=== PATIENT | female | born 1955 | race Caucasian/White ===

== ENCOUNTER 2018-04-12 07:30 | Inpatient (IN) | payer OTHER ==
[~2018-04-12] VITALS: Ht 165.1 cm; Wt 80.7 kg
[~2018-04-12 07:30] MED LIST: ACETAMINOPHEN325 M1 ORAL; CIPRO500 MG PO; COUMADIN5 MG PO; ESTRADIOL PO; ESTRADIOL1 M1 PO; LEVOTHYROXINE125 MCG PO; LISINOPRIL10 MG PO; LOVENOX SUBQ; MOTRIN600 MG PO; PEPCID40 MG PO; PERCOCET 5-3251 EACH PO; VICODIN PO
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
[2018-10-02 12:05] VITALS: BP 107/69
[2018-10-02] MEDS ORDERED: Heparin 2000 units/Ns 1000ml INJ PRN (12:30)
[2018-10-02] MEDS ORDERED: Lidocaine 1% Plain 30 ml INJ PRN (12:30)
[2018-10-02 13:04] LABS: BASOPHILS % (AUTO) 0.9 % (0.0-2.0); EOSINOPHILS % (AUTO) 0.9 % (0.0-3.0); HEMOGLOBIN 14.5 G/DL (12.0-16.0); LYMPHOCYTES % (AUTO) 10.3 % (20.0-45.0); MEAN CORPUSCULAR VOLUME 97 FL (80-99); MONOCYTES % (AUTO) 9.5 % (1.0-10.0); NEUTROPHILS % (AUTO) 78.4 % (45.0-75.0); PLATELET COUNT 300 K/UL (150-450); RED BLOOD COUNT 4.45 M/UL (4.20-5.40); RED CELL DISTRIBUTION WIDTH 12.6 % (11.6-14.8); WHITE BLOOD COUNT 12.7 K/UL (4.8-10.8)
[2018-10-02 13:10] LABS: INR 0.9 (0.9-1.1)
[2018-10-02] MEDS: Neomycin Sulfate 500mg Tab ORAL SCH ×3 (13:18→20:22)
[2018-10-02 13:28] LABS: ANION GAP 11 mmol/L (5-15); BLOOD UREA NITROGEN 28 mg/dL (7-18); CALCIUM 9.6 MG/DL (8.5-10.1); CARBON DIOXIDE 28 MMOL/L (21-32); CHLORIDE 98 MMOL/L (98-107); POTASSIUM 3.5 MMOL/L (3.5-5.1); SODIUM 137 MMOL/L (136-145)
[2018-10-02 13:44] LABS: ALANINE AMINOTRANSFERASE 51 U/L (12-78); ALBUMIN 4.1 G/DL (3.4-5.0); ALBUMIN/GLOBULIN RATIO 1.1 (1.0-2.7); ALKALINE PHOSPHATASE 132 U/L (46-116); ASPARTATE AMINO TRANSFERASE 28 U/L (15-37); BILIRUBIN,TOTAL 0.3 MG/DL (0.2-1.0); FERRITIN 782 NG/ML (8-388)
[2018-10-02 13:54] LABS: APPEARANCE,URINE SLIGHTLY CLOUDY; BILIRUBIN, URINE NEGATIVE (NEGATIVE); COLOR,URINE PALE YELLOW; GLUCOSE, URINE (UA) NEGATIVE (NEGATIVE); KETONES,URINE NEGATIVE (NEGATIVE); LEUKOCYTE ESTERASE ,URINE NEGATIVE (NEGATIVE); NITRITE,URINE NEGATIVE (NEGATIVE); PH,URINE 5 (4.5-8.0); PROTEIN,URINE 1+ (NEGATIVE); UROBILINOGEN,URINE NORMAL MG/DL (0.0-1.0)
[2018-10-02 14:12] LABS: % IRON SATURATION 17 % (15-50); IRON 62 ug/dL (50-175); TOTAL IRON BINDING CAPACITY 372 ug/dL (250-450)
[2018-10-02 16:00] VITALS: BP 114/68
--- NOTE | 2018-10-02 16:01 | Diagnostic Imaging Report ---
Indication: Dyspnea Comparison: 01/23/2013 A single view chest radiograph was obtained. Findings: The lungs are clear. There is minimal left basal atelectasis. PICC line is present. The tip is at the junction of the right atrium and SVC. Heart size is within normal limits. Bones are osteopenic. IMPRESSION: Minimal left basal atelectasis.
--- NOTE | 2018-10-02 16:08 | Diagnostic Imaging Report ---
Indication: terminal manager venous access Findings: After the indications, procedure, risks, complications, and alternatives of the procedure were explained, written informed consent was obtained. The left upper extremity was prepped with alcohol. All elements of maximal sterile barrier technique were followed including usage of a cap, mask, sterile gown, sterile gloves, hand hygiene and a large sterile sheet. Sonographic evaluation of the upper extremity was performed demonstrating a patent and compressible basilic vein. Access was obtained under real-time ultrasound guidance (with utilization of sterile gel and sterile probe cover) and digital image was saved and archived. An .018 wire was introduced. Needle exchanged for a 5 Greek peel-away sheath. Measurements were obtained. A 5 Greek dual-lumen Power PICC line catheter was cut to 45 cm and introduced over the wire. Peel-away sheath and wire were removed.Catheter was secured to the skin using 2-0 Prolene suture. Both ports aspirate and flush easily. Fluoroscopic images show distal tip in the superior vena cava. Total fluoroscopic time 26.6 seconds. Impression: Successful placement of an upper extremity PICC line catheter
[2018-10-02] MEDS: D5 1/2NS w/KCl 40meq 1000ml 1,000 ML IV SCH (16:39)
--- NOTE | 2018-10-02 16:57 | General Progress Note ---
Progress Note Progress Note H&P dictated. Full discussion with patient regarding revision of Kock Pouch, resection with creation of Breanna ileostomy, preservation of Kock pouch but rendering it incontinent and transforming it into a Breanna ileostomy. Labs satisfactory except Iron 62 (50-175). Hgb 14.5 She gets recurrent atrial fibrillation with serum iron less than 100 - will start Venofer tonight. WBC 12,700 - may be due to steroid therapy. Will also do needle liver biopsy for history of persistently elevated enzymes Will continue pre-admission Metoprolol, Lisinopril, thyroid and estradiol Will give solucortef IV and Protonix IV Kian Dominguez MD Oct 02, 2018 16:57
[2018-10-02] MEDS ORDERED: HYDROcodone/Acetamin 10/325 tab ORAL PRN (17:00)
--- NOTE | 2018-10-02 17:15 | Anethesia Preoperative Eval ---
Anesthesia Pre-op PMH/ROS General Date of Evaluation: Oct 02, 2018 Time of Evaluation: 17:08 Anesthesiologist: Yesenia ASA Score: ASA 3 Mallampati Score Class I : Soft palate, uvula, fauces, pillars visible Class II: Soft palate, uvula, fauces visible Class III: Soft palate, base of uvula visible Class IV: Only hard plate visible Mallampati Classification: Class II Surgeon: Angelica Diagnosis: Malfunctioning continent pouch recurrent abdominal hernia Surgical Procedure: Revision of continent pouch abd. wall reconstruction Anesthesia History: none Family History: no anesthesia problems Allergies: Coded Allergies: BENZALKONIUM CHLORIDE (Verified Allergy, Severe, 04/27/16) SERUM SICKNESS- IMMUNE COMPLEX Uncoded Allergies: INJE (Allergy, Severe, 04/27/16) ANGIOEDEMA VICRYL SUTURE (Allergy, Mild, 02/06/12) Medications: see eMAR Patient NPO?: Yes Past Medical History Cardiovascular: Reports: arrhythmia - intermittent A fib; Denies: HTN, CAD, CT, valve dz, other Pulmonary: Denies: asthma, COPD, CUAUHTEMOC, other Gastrointestinal/Genitourinary: Reports: GERD - mild, other - s/p total colectomy; Denies: CRI, ESRD Neurologic/Psychiatric: Reports: depression/anxiety; Denies: dementia, CVA, TIA, other Endocrine: Reports: steroids - small dose at that moment; Denies: DM, hypothyroidism, other HEENT: Denies: cataract (L), cataract (R), glaucoma, RUBY (L), RUBY (R), other Hematology/Immune: Reports: anemia - mild with iron deficiency; Denies: DVT, bleeding disorder, other Musculoskeletal/Integumentary: Denies: OA, RA, DJD, DDD, edema, other Other: other - overweight PMH Narrative: as above PSxH Narrative: See surgeon, H&P for full list of surgeries Anesthesia Pre-op Phys. Exam Physician Exam Last Vital Signs Date Time Temp Pulse Resp B/P (MAP) Pulse Ox O2 Delivery O2 Flow Rate FiO2 10/02/18 12:05 Room Air Constitutional: NAD Neurologic: CN 2-12 intact Cardiovascular: RRR, no M/R/G Respiratory: CTA Gastrointestinal: other - ventral hernia Airway Exam Mallampati Score: Class II MO: full Neck: flexible ROM: limited Teeth: intact Dentures: no upper, no lower Anesthesia Pre-op A/P Labs Hematology Test 10/02/18 12:30 White Blood Count 12.7 K/UL (4.8-10.8) H Red Blood Count 4.45 M/UL (4.20-5.40) Hemoglobin 14.5 G/DL (12.0-16.0) Hematocrit 43.0 % (37.0-47.0) Mean Corpuscular Volume 97 FL (80-99) Mean Corpuscular Hemoglobin 32.6 PG (27.0-31.0) H Mean Corpuscular Hemoglobin Concent 33.7 G/DL (32.0-36.0) Red Cell Distribution Width 12.6 % (11.6-14.8) Platelet Count 300 K/UL (150-450) Mean Platelet Volume 7.7 FL (6.5-10.1) Neutrophils (%) (Auto) 78.4 % (45.0-75.0) H Lymphocytes (%) (Auto) 10.3 % (20.0-45.0) L Monocytes (%) (Auto) 9.5 % (1.0-10.0) Eosinophils (%) (Auto) 0.9 % (0.0-3.0) Basophils (%) (Auto) 0.9 % (0.0-2.0) Coagulation Test 10/02/18 12:30 Prothrombin Time 9.9 SEC (9.30-11.50) Prothromb Time International Ratio 0.9 (0.9-1.1) Activated Partial Thromboplast Time 25 SEC (23-33) Chemistry Test 10/02/18 12:30 Sodium Level 137 MMOL/L (136-145) Potassium Level 3.5 MMOL/L (3.5-5.1) Chloride Level 98 MMOL/L (98-107) Carbon Dioxide Level 28 MMOL/L (21-32) Anion Gap 11 mmol/L (5-15) Blood Urea Nitrogen 28 mg/dL (7-18) H Creatinine 1.0 MG/DL (0.55-1.30) Estimat Glomerular Filtration Rate 55.8 mL/min (>60) Glucose Level 105 MG/DL (74-106) Calcium Level 9.6 MG/DL (8.5-10.1) Iron Level 62 ug/dL (50-175) Total Iron Binding Capacity 372 ug/dL (250-450) Percent Iron Saturation 17 % (15-50) Unsaturated Iron Binding 310 ug/dL (112-346) Ferritin 782 NG/ML (8-388) H Total Bilirubin 0.3 MG/DL (0.2-1.0) Aspartate Amino Transf (AST/SGOT) 28 U/L (15-37) Alanine Aminotransferase (ALT/SGPT) 51 U/L (12-78) Alkaline Phosphatase 132 U/L (46-116) H Total Protein 7.7 G/DL (6.4-8.2) Albumin 4.1 G/DL (3.4-5.0) Globulin 3.6 g/dL Albumin/Globulin Ratio 1.1 (1.0-2.7) Vitamin B12 Level 818 PG/ML (193-986) Folate 73.4 NG/ML (8.6-58.9) H Studies Pre-op Studies: EKG - NSR Risk Assessment & Plan Assessment: ASA 3 Plan: GA with ETT. Patient requested Duramorph intrathecal injection for postoperative pain control Status Change Before Surgery: No Pre-Antibiotics Drug: as scheduled Brent Patterson MD Oct 02, 2018 17:15
[2018-10-02] MEDS ORDERED: D5 1/2NS w/KCl 20mEq 1,000 ML IV SCH (18:00)
[2018-10-02] MEDS ORDERED: LEVOTHYROXINE75 MCG ORAL (19:45)
[2018-10-02] MEDS ORDERED: ESTRACE1 MG ORAL (19:45)
[2018-10-02] MEDS ORDERED: PROPAFENONE HC150 MG PO (19:45)
[2018-10-02] MEDS ORDERED: LISINOPRIL5 MG ORAL (19:45)
[2018-10-02] MEDS ORDERED: METOPROLOL TART50 M1 ORAL (19:45)
[2018-10-02 20:00] VITALS: BP 101/63
[2018-10-02] MEDS: Dyna-Hex 2% Top Sol 2oz TOPIC SCH (20:24)
[2018-10-02] MEDS: Iron Sucrose 100 MG in NS 55 ML IV SCH (20:24)
[2018-10-02] MEDS: Pantoprazole Inj IVP SCH (20:24)
[2018-10-02] MEDS ORDERED: Metoprolol Tartrate 50mg tab ORAL SCH (21:00)
[2018-10-03] VITALS (15 sets, daily range): BP systolic 80–122; BP diastolic 45–67
[2018-10-03] MEDS ORDERED: Clindamycin 300mg/ml vial inj IV SCH
[2018-10-03] MEDS: Ampicillin/Sulbactam Sod 3 GM in NS 110 ML IVPB SCH ×5 (00:19→23:01)
[2018-10-03] MEDS: [UNRECOGNIZED DRUG - OTHER] IV SCH ×5 (00:19→23:00)
[2018-10-03] MEDS: CLINDAMYCIN IV SCH ×5 (00:19→23:00)
[2018-10-03] MEDS: D5 1/2NS w/KCl 40meq 1000ml 1,000 ML IV SCH ×2 (03:28→12:00)
[2018-10-03 06:44] LABS: ANION GAP 7 mmol/L (5-15); BLOOD UREA NITROGEN 14 mg/dL (7-18); CALCIUM 8.4 MG/DL (8.5-10.1); CARBON DIOXIDE 26 MMOL/L (21-32); CHLORIDE 106 MMOL/L (98-107); CREATININE 0.7 MG/DL (0.55-1.30); POTASSIUM 3.2 MMOL/L (3.5-5.1); SODIUM 139 MMOL/L (136-145)
[2018-10-03 07:51] LABS: BASOPHILS % (AUTO) 1.2 % (0.0-2.0); EOSINOPHILS % (AUTO) 2.8 % (0.0-3.0); HEMATOCRIT 38.6 % (37.0-47.0); HEMOGLOBIN 12.7 G/DL (12.0-16.0); LYMPHOCYTES % (AUTO) 16.7 % (20.0-45.0); MEAN CORPUSCULAR VOLUME 95 FL (80-99); MONOCYTES % (AUTO) 13.1 % (1.0-10.0); NEUTROPHILS % (AUTO) 66.3 % (45.0-75.0); PLATELET COUNT 201 K/UL (150-450); RED BLOOD COUNT 4.04 M/UL (4.20-5.40); RED CELL DISTRIBUTION WIDTH 12.3 % (11.6-14.8); WHITE BLOOD COUNT 6.6 K/UL (4.8-10.8)
[2018-10-03] MEDS ORDERED: Hydrocortisone 100mg Inj IV SCH (08:00)
[2018-10-03] MEDS ORDERED: Heparin 5000 units/ml inj SUBQ SCH (08:00)
[2018-10-03] MEDS ORDERED: D5W IVPB ONE (08:45)
[2018-10-03] MEDS ORDERED: POTASSIUM CHLORIDE IVPB ONE (08:45)
[2018-10-03] MEDS ORDERED: Lisinopril 10mg tab ORAL SCH (09:00)
[2018-10-03] MEDS ORDERED: Metoprolol Tartrate 50mg tab ORAL SCH (09:00)
[2018-10-03] MEDS ORDERED: NS Irrig 1000ml ONE ×2 (09:00→17:03)
[2018-10-03] MEDS ORDERED: Sterile Water Irrig 1000ml IRRIG ONE (09:00)
[2018-10-03] MEDS ORDERED: Bacitracin 50000 Units Vial ONE ×2 (09:10→14:33)
[2018-10-03] MEDS ORDERED: NeoSporin Gu Irrig 1ml Amp IRRIG ONE ×2 (09:10→14:33)
[2018-10-03] MEDS: Pantoprazole Inj IVP SCH (09:10)
[2018-10-03] MEDS ORDERED: Morphine Sulfate PF 10 ML ONE (09:21)
[2018-10-03] MEDS ORDERED: LR 1000ml 1,000 ML IVLG SCH (09:23)
[2018-10-03] MEDS ORDERED: Sodium Chloride 10ml vial INJ ONE (09:26)
[2018-10-03] MEDS ORDERED: Lidocaine 1% MPF 10mg/ml 5ml ONE (09:26)
[2018-10-03] MEDS ORDERED: Dexamethasone 4mg/ml vial ONE (09:26)
[2018-10-03] MEDS ORDERED: Lidocaine 1% Plain 30 ml INJ ONE (09:28)
[2018-10-03] MEDS ORDERED: Meperidine 50mg/ml Inj(FOR RIGORS ONLY) IVP PRN (09:30)
[2018-10-03] MEDS ORDERED: fentaNYL 100 mcg/2 mL IV PRN (09:30)
[2018-10-03] MEDS ORDERED: DiphenhydrAMINE 50mg/ml Inj IVP PRN (09:30)
[2018-10-03] MEDS ORDERED: Norco 5mg/325mg tab ORAL PRN (09:30)
[2018-10-03] MEDS ORDERED: Ketorolac 30mg Inj IV PRN ×2 (09:30)
[2018-10-03] MEDS ORDERED: LORazepam Inj 2mg/ml 1ml IV PRN (09:30)
[2018-10-03] MEDS ORDERED: oxyCODONE HCL/Acetaminophen 5/325mg ORAL PRN (09:30)
[2018-10-03] MEDS ORDERED: Metoclopramide 10mg/2ml Inj IVP PRN (09:30)
[2018-10-03] MEDS ORDERED: Propofol 1,000mg/ 100ml btl IV ONE (09:30)
[2018-10-03] MEDS ORDERED: Hydromorphone 0.5mg/0.5ml inj IVP PRN (09:30)
[2018-10-03] MEDS ORDERED: Midazolam 2mg/2ml Inj IVP PRN (09:30)
[2018-10-03] MEDS ORDERED: HYDROcodone/Acetamin 7.5/325 tab ORAL PRN (09:30)
[2018-10-03] MEDS ORDERED: Atropine Sulfate 0.4mg/ml inj IVP PRN (09:30)
[2018-10-03] MEDS ORDERED: Acetaminophen (Non formulary) 100 ML IV ONE (09:30)
[2018-10-03] MEDS ORDERED: Zemuron 50mg/5ml Inj IV ONE (09:41)
--- NOTE | 2018-10-03 09:41 | Pre-Procedure Note/Attestation ---
Pre-Procedure Note/Attestation Complete Prior to Procedure Planned Procedure: not applicable Procedure Narrative: revision of Kock Pouch, possible resection with Breanna ileostomy; repair multiply recurrent ventral incisional and parastomal herniae Indications for Procedure Pre-Operative Diagnosis: Malfunctioning Kock Pouch and recurrent incisional and parastomal hernia Attestation I attest that I discussed the nature of the procedure; its benefits; risks and complications; and alternatives (and the risks and benefits of such alternatives ), prior to the procedure, with the patient (or the patient's legal community representative). I attest that, if there was a reasonable possibility of needing a blood transfusion, the patient (or the patient's legal community representative) was given the [place] Department [employer] standardized written summary, pursuant to the [place] Blood Safety Act ([place] Health and Safety Code # 1645, as amended). I attest that I re-evaluated the patient just prior to the surgery and that there has been no change in the patient's H&P, except as documented below: none Kian Dominguez MD Oct 03, 2018 09:41
[2018-10-03] MEDS ORDERED: Bupivacaine 0.5% Inj 30 ml vial INJ ONE (09:56)
[2018-10-03] MEDS ORDERED: cloNIDine 1000mcg/10ml inj ONE (09:56)
--- NOTE | 2018-10-03 10:47 | Immediate Post-Op Evaluation ---
Immediate Post-Op Evalulation Immediate Post-Op Evalulation Procedure: Revise Kock Pouch, Abd Wall Reconstruction Date of Evaluation: Oct 03, 2018 Time of Evaluation: 16:00 IV Fluids: 1000 LR Blood Products: 1000 Albumin Estimated Blood Loss: 150 Urinary Output: 600 Blood Pressure Systolic: 90 Blood Pressure Diastolic: 56 Pulse Rate: 106 Respiratory Rate: 16 O2 Sat by Pulse Oximetry: 99 Temperature (Fahrenheit): 98.7 Pain Score (1-10): 1 Nausea: No Vomiting: No Complications 0 Patient Status: awake, reacts, patent, extubated, none Hydration Status: adequate Drug: On Floor Given Within 1 Hr of Incision: Yes Jake Dawkins MD Oct 03, 2018 10:47
[2018-10-03] MEDS ORDERED: Ampicillin/Sulbactam Sod 3 GM in NS 110 ML IV SCH (12:00)
[2018-10-03] MEDS ORDERED: ePHEDrine 50mg/ml Inj ONE ×2 (12:37→12:55)
[2018-10-03] MEDS ORDERED: Phenylephrine 10mg/ml Vial ONE (13:32)
[2018-10-03] MEDS ORDERED: Lidocaine 1% 10mg/ml/Epi 0.005mg/ml 30ml vial INJ ONE (14:32)
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
[2018-10-03] MEDS ORDERED: Glycopyrrolate 0.2mg/ml 1ml Vial ONE (15:04)
[2018-10-03] MEDS ORDERED: Naloxone 0.4mg/ml Inj IV PRN (16:00)
--- NOTE | 2018-10-03 16:16 | Brief Operative Note ---
Immediate Post Operative Note Operative Note Pre-op Diagnosis: Malfunctioning Kock Pouch and recurrent incisional and parastomal hernia Procedure: resection of Kock Pouch and creation of Breanna ileostomy, abdominal wall reconstruction without mesh Post-op Diagnosis: same Post-op Diagnosis: same as pre-op Findings: consistent w/pre-op dx studies Surgeon: shalini Server Manager: jose raul Additional Surgeons: saadia Anesthesiologist: blanche Anesthesia: general Specimen: yes - Kock pouch, omentum, hernia sac Complications: none Condition: stable Fluids: see anesthesia record Estimated Blood Loss: volume - 150cc Drains: MINESH Implant(s) used?: No Kian Dominguez MD Oct 03, 2018 16:16
--- NOTE | 2018-10-03 16:18 | General Progress Note ---
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 Will utilize Fentanyl patch 25mcq q72 hours and intermittent low dose Toradol if needed Kian Dominguez MD Oct 03, 2018 16:18
[2018-10-03] MEDS ORDERED: D5 1/2NS w/KCl 40meq 1000ml 1,000 ML IV SCH (19:00)
[2018-10-03] MEDS: Iron Sucrose 100 MG in NS 55 ML IV SCH (20:44)
--- NOTE | 2018-10-03 20:45 | Operative Note - Dictated ---
DATE OF OPERATION: 10/03/2018 SURGEON: Kevin Bermudez M.D. ANESTHESIOLOGIST: Jake Dawkins M.D. PREOPERATIVE DIAGNOSIS: Abdominal wall hernia. POSTOPERATIVE DIAGNOSIS: Abdominal wall hernia. OPERATION: Abdominal wall reconstruction with advancement of abdominal wall fascia and musculature, elevating bilateral flaps. ANESTHESIA: General endotracheal anesthesia. OPERATIVE INDICATIONS: This is a 63-year-old female who is undergoing bowel surgery by Dr. Kian Dominguez and his portion of the surgery will be dictated by Dr. Dominguez. She has had a prior history of multiple ventral hernias with different types of mesh repair. She is to undergo pick down of her Kock pouch and is needed to mobilize the abdominal wall musculature for closure of the abdominal wall. OPERATIVE PROCEDURE: The portion of the intraabdominal surgery will be dictated by Dr. Dominguez. Upon entering the room, the patient is noted to have a midline incision with division of the rectus musculature in the midline. She was noted to have a very thin rectus musculature without defined semilunaris. Decision was made at this point to try and do component separation by first elevating the skin, subcutaneous flap off the anterior rectus fascia. This could be done more aggressively on the left side as she wishes to have an ileostomy, brought out through the right lower quadrant. Beginning with medial edge of the rectus muscle, the skin and subcutaneous fat was elevated in an avascular plane extending out laterally on the left side. It is very difficult to appreciate the semilunaris line in this patient as she has had very atrophic musculature as well as multiple reconstructions internally with mesh sutures. As the skin flap was elevated towards the lateral aspect from the costal margin to the anterior inferior iliac spine, it was felt that it was too thin to try to attempt a component separation as there would lead to a potential weakening of the lateral abdominal wall and if not a full-thickness defect and this would lead to problems with lateral hernia in the future. So, at this point, decision was made to mobilize as much of the rectus fascia on the right side bearing in mind not to violate the area where the stoma was to be brought out. Once this was done, there was actually very minimal to no tension on the rectus closure on the midline. This was then done with a number #1 PDS in a running fashion, beginning superiorly to the midpoint and inferiorly to the midpoint. Once this was closed, it was deemed to be acceptable without any need for onlay mesh, as she did have significant bowel spillage during the surgery and did not want a risk of mesh infection. At this point, the irrigation was performed of the pocket created below the flaps and then a 19-Serbian Rj drain was placed and brought out through the left lower quadrant and secured to the skin with a 2-0 nylon. The incision was then closed with 3-0 Monocryl in a subcutaneous tissue followed by leopoldo for the skin. Dr. Dominguez will of the ileostomy and will dictate this separately as well. There were no complications during my portion of the case. EBL was scant. The patient is stable. Kevin Bermudez M.D. DR: YUSEF JOB#: [id number] CC:
[2018-10-03] MEDS: Ketorolac 30mg Inj IM PRN (20:46)
[2018-10-03] MEDS: Dyna-Hex 2% Top Sol 2oz TOPIC SCH (20:46)
--- NOTE | 2018-10-03 21:30 | Operative Note - Dictated ---
DATE OF OPERATION: 10/03/2018 SURGEON: Kian Dominguez M.D. TRANSIT MIX OPERATOR SURGEON: Rodney Henriquez M.D. ADDITIONAL SURGEON: Kevin Bermudez M.D. ANESTHESIOLOGIST: Jake Dawkins M.D. TYPE OF ANESTHESIA: General endotracheal. PREOPERATIVE DIAGNOSES: 1. Malfunctioning Kock pouch continent ileostomy with recurrent difficulty intubating and incontinence and prolapse of the nipple valve 2. Multiple recurrent extensive ventral incisional and parastomal hernia involving the entire lower abdomen and central abdomen. 3. STATUS POST MULTIPLE ABDOMINAL OPERATIONS: 3.1. April 2000 followed by perineal trauma. She underwent laparotomy with colostomy and drainage of pelvic abscess and evacuation of retroperitoneal hematoma. 3.2. July 2001, proctocolectomy with creation of a Kock pouch and repair of left lower quadrant colostomy site hernia, cholecystectomy, total abdominal hysterectomy and bilateral salpingo-oophorectomy, and urethropexy. 3.3. 2001, repair of parastomal hernia. 3.4. 2002, relocation of Kock pouch to the left side of abdomen with creation of a new valve and repair of right-sided abdominal hernia. 3.5. 2004, repair of complex recurrent extensive ventral incisional and parastomal hernia with Parietex mesh and revision of Kock pouch stoma. 3.6. 2008, repair of recurrent Kock pouch parastomal hernia with Surgisis mesh and revision of Kock pouch stoma stricture. 3.7. August 2010, laparotomy with creation of new valve and stoma with relocation of the Kock pouch to the right side of the abdomen and repair of recurrent left lower quadrant abdominal wall hernia and temporary catheter gastrostomy. 3.8. January 2012, laparotomy with revision of Kock pouch including creation of new valve and stoma and repair of recurrent incisional hernia. 3.9. July 2012, laparotomy with creation of new valve and stoma with preservation of Kock pouch using a PROCEED mesh sling and repair of recurrent left lower quadrant incisional hernia. 3.10. January 2013, laparotomy with creation of new valve and stoma with Dual Mesh sling with estimated intestinal length of approximately 12 feet. POSTOPERATIVE DIAGNOSES: 1. Malfunctioning Kock pouch continent ileostomy with recurrent difficulty intubating and incontinence and prolapse of the nipple valve 2. Multiple recurrent extensive ventral incisional and parastomal hernia involving the entire lower abdomen and central abdomen. 3. STATUS POST MULTIPLE ABDOMINAL OPERATIONS: 3.1. April 2000 followed by perineal trauma. She underwent laparotomy with colostomy and drainage of pelvic abscess and evacuation of retroperitoneal hematoma. 3.2. July 2001, proctocolectomy with creation of a Kock pouch and repair of left lower quadrant colostomy site hernia, cholecystectomy, total abdominal hysterectomy and bilateral salpingo-oophorectomy, and urethropexy. 3.3. 2001, repair of parastomal hernia. 3.4. 2002, relocation of Kock pouch to the left side of abdomen with creation of a new valve and repair of right-sided abdominal hernia. 3.5. 2004, repair of complex recurrent extensive ventral incisional and parastomal hernia with Parietex mesh and revision of Kock pouch stoma. 3.6. 2008, repair of recurrent Kock pouch parastomal hernia with Surgisis mesh and revision of Kock pouch stoma stricture. 3.7. August 2010, laparotomy with creation of new valve and stoma with relocation of the Kock pouch to the right side of the abdomen and repair of recurrent left lower quadrant abdominal wall hernia and temporary catheter gastrostomy. 3.8. January 2012, laparotomy with revision of Kock pouch including creation of new valve and stoma and repair of recurrent incisional hernia. 3.9. July 2012, laparotomy with creation of new valve and stoma with preservation of Kock pouch using a PROCEED mesh sling and repair of recurrent left lower quadrant incisional hernia. 3.10. January 2013, laparotomy with creation of new valve and stoma with Dual Mesh sling with estimated intestinal length of approximately 12 feet. OPERATION PERFORMED: 1. Laparotomy with resection of failed Kock pouch and creation of Breanna ileostomy at the same right lower quadrant stoma. 2. Resection of part of the omentum and hernia sac. 3. Abdominal wall reconstruction performed together with Dr. Kevin Bermudez, Plastic and Reconstructive surgery with closure of the abdominal wall without mesh. 4. Estimated length of small bowel 13 to 14 feet. DESCRIPTION OF PROCEDURE: The patient was taken to the operating room and under general endotracheal anesthesia with sequential compression device stockings and Acosta catheter in place and having received preoperative intravenous antibiotics and subcutaneous heparin, the patient was prepped and draped in usual fashion. Initially, the stoma in the right lower quadrant was covered with Tegaderm. Previous midline incision was reopened from upper epigastrium to the pubis. There were diffuse adhesions, which were all taken down so that the entire stomach and then duodenum and the entire small bowel was mobilized. Part of the retained omentum was resected ligating vessels with #0 silk. In view of chronic elevated liver function enzymes, a core needle biopsy of the liver was performed with a Dawit-Cut needle with three passes achieving hemostasis readily with cautery. The stoma in the right lower quadrant was dismantled with a transversely oriented elliptical incision and brought through into the abdominal wall. A 28-Latvian Acosta was manipulated through the stoma into the pouch to facilitate dissection. The pouch was mobilized out of the deep pelvis protecting the bladder and both ureters. It was quite densely adherent to the bladder. Finally, the entire small bowel with the pouch was mobilized. It was clear that this Kock pouch could not be salvaged, and accordingly, the small bowel was divided flush with the pouch and the estimated length of small bowel was 13 to 14 feet. The pouch was resected, dividing the mesentery using a combination of 2-0 and 0 silk ties and the Thunderbeat electrocautery device. The small bowel was stapled across with a TREASURE 75 flush with the pouch. Hernia sac was stripped out of the abdominal wall in the central and lower abdomen. The parastomal hernia was dealt with by narrowing the abdominal wall hiatus medially with several interrupted #1 PDS sutures leaving a 2 fingerbreadth abdominal wall hiatus for the Breanna ileostomy. The stoma was located in a good position to utilize an external appliance. Throughout the procedure, frequent glove changes were performed and antibiotic soaked laps were used to protect the abdominal wall. The entire field of dissection including the liver, abdomen and pelvis was carefully inspected and hemostasis was secured. Dr. Bermudez helped mobilize a flap on both sides, but the abdominal wall thickness was approximately 0.5 cm to 1 centimeter. There was atrophy of the rectus muscles on both sides. Any attempt to perform a component separation would have risked full-thickness going through the abdominal wall musculature and a subsequent lateral hernia. With persistent mobilization, the fascia could be brought together in the midline without any significant tension. It was closed in sectors with #1 PDS continuous suture. First, the upper abdomen, then the very lower, and then the central. With a separate stab incision low in the left lower quadrant, a 19 mm Rj drain was placed under the subcutaneous tissues on the left side crossing to the right above the level of the ileostomy and the drain was sutured in place with 2-0 silk suture. Additional irrigation was utilized and the abdominal midline incision closed with multiple interrupted subcutaneous 3-0 Monocryl and the skin closed with leopoldo. Then the mesentery leading to the end of the ileostomy segment was trimmed ligating with 3-0 Chromic and then utilizing 3-0 Chromic in traditional fashion an everted Breanna ileostomy was created with a very good protrusion. The small bowel had been sutured to the peritoneum with interrupted 3-0 silk sutures before the abdomen had been closed. An ileostomy appliance was cut to fit and placed over the stoma followed by Telfa and 4x4 over the incision. An abdominal binder was placed with a hole cut over the area of the ileostomy. ESTIMATED BLOOD LOSS: 150 mL. DURATION OF SURGERY: Four and half hours. The patient tolerated the operation well and left the operating room in stable condition. Kian Dominguez M.D. DR: MUMTAZ JOB#: [id number] CC: GURU
[2018-10-04] VITALS (12 sets, daily range): BP systolic 73–110; BP diastolic 42–64
[2018-10-04] MEDS: D5 1/2NS w/KCl 40meq 1000ml 1,000 ML IV SCH ×2 (01:30→12:16)
[2018-10-04 05:47] LABS: BASOPHILS % (AUTO) 0.2 % (0.0-2.0); HEMOGLOBIN 8.7 G/DL (12.0-16.0); LYMPHOCYTES % (AUTO) 4.8 % (20.0-45.0); MEAN CORPUSCULAR VOLUME 96 FL (80-99); MONOCYTES % (AUTO) 10.1 % (1.0-10.0); NEUTROPHILS % (AUTO) 84.9 % (45.0-75.0); PLATELET COUNT 143 K/UL (150-450); RED BLOOD COUNT 2.71 M/UL (4.20-5.40); RED CELL DISTRIBUTION WIDTH 12.8 % (11.6-14.8); WHITE BLOOD COUNT 9.8 K/UL (4.8-10.8)
[2018-10-04] MEDS: Ampicillin/Sulbactam Sod 3 GM in NS 110 ML IVPB SCH ×3 (05:51→18:04)
[2018-10-04] MEDS: [UNRECOGNIZED DRUG - OTHER] IV SCH ×3 (05:52→18:06)
[2018-10-04] MEDS: CLINDAMYCIN IV SCH ×3 (05:52→18:06)
[2018-10-04 05:58] LABS: ANION GAP 9 mmol/L (5-15); BLOOD UREA NITROGEN 14 mg/dL (7-18); CALCIUM 7.5 MG/DL (8.5-10.1); CARBON DIOXIDE 22 MMOL/L (21-32); CHLORIDE 111 MMOL/L (98-107); CREATININE 1.1 MG/DL (0.55-1.30); POTASSIUM 3.5 MMOL/L (3.5-5.1); SODIUM 142 MMOL/L (136-145)
--- NOTE | 2018-10-04 08:41 | General Progress Note ---
Progress Note Progress Note Awake and alert, comfortable with Fentanyl 25mcg patch and one dose of Toradol 15mg IV overnight Had mild hypotension and mild tachycardia with low urine output overnight, improved this AM with additional IV fluids Abdomen soft, minimal distention, incision clean, stoma pink, binder in place with hole cut for ileostomy Urine 355cc/12 hours overnight WBC 9800 Hgb 8.7 (was 12.7 pre-op - likely dilutional with EBL only 150cc and not distended) Platelets down 143,000 K 3.5 BUN 14 Cr 1.1 Imp. Third spacing with transient hypotension Ileus Plan; NPO, continue Acosta Cardiology evaluation (Dr. Castellon called) f/u labs at 1300 and in AM bedrest with SCDs for now Kian Dominguez MD Oct 04, 2018 08:41
[2018-10-04] MEDS: NS w/KCl 40mEq 1,000 ML IV SCH ×2 (08:49→22:20)
[2018-10-04] MEDS: Hydrocortisone 100mg Inj IV SCH ×2 (08:49→21:10)
[2018-10-04] MEDS: Pantoprazole Inj IVP SCH (08:49)
[2018-10-04] MEDS: Ketorolac 30mg Inj IM PRN (08:52)
[2018-10-04] MEDS ORDERED: Lisinopril 10mg tab ORAL SCH (09:00)
[2018-10-04] MEDS ORDERED: Metoprolol Tartrate 50mg tab ORAL SCH (09:00)
--- NOTE | 2018-10-04 09:50 | 48 Hour Post Anesthesia Eval ---
Post Anesthesia Evaluation Procedure: Revise Kock Pouch, Abd Wall Reconstruction Date of Evaluation: Oct 04, 2018 Time of Evaluation: 09:49 Blood Pressure Systolic: 106 0: 72 Pulse Rate: 68 Respiratory Rate: 20 Temperature (Fahrenheit): 97.6 O2 Sat by Pulse Oximetry: 98 Airway: patent Nausea: No Vomiting: No Pain Intensity: 3 Hydration Status: adequate Cardiopulmonary Status: stable Mental Status/LOC: patient returned to baseline Follow-up Care/Observations: n/a Post-Anesthesia Complications: none Follow-up care needed: N/A Brent Patterson MD Oct 04, 2018 09:50
[2018-10-04 13:19] LABS: HEMOGLOBIN 8.5 G/DL (12.0-16.0); MEAN CORPUSCULAR VOLUME 97 FL (80-99); PLATELET COUNT 129 K/UL (150-450); RED BLOOD COUNT 2.69 M/UL (4.20-5.40)
[2018-10-04 13:28] LABS: ANION GAP 9 mmol/L (5-15); BLOOD UREA NITROGEN 13 mg/dL (7-18); CALCIUM 7.7 MG/DL (8.5-10.1); CARBON DIOXIDE 22 MMOL/L (21-32); CHLORIDE 113 MMOL/L (98-107); CREATININE 0.8 MG/DL (0.55-1.30); POTASSIUM 3.5 MMOL/L (3.5-5.1); SODIUM 144 MMOL/L (136-145)
[2018-10-04] MEDS ORDERED: NS 250 ML IVPB ONE (14:18)
--- NOTE | 2018-10-04 15:02 | Cardiology Report ---
APPROVED REPORT EKG Measurement Heart [id number] Normal sinus rhythm Normal ECG
--- NOTE | 2018-10-04 16:04 | Consultation ---
Consult Note Assessment/Plan Chart reviewed, Patient examined. Imp: Paroxysmal A. Fib- in NSR Hypotension Fibromyalgia Hypothyroidism S/P conversion of Kock pouch to ileostomy Plan IV fluids Start Metoprolol 25 mg BID Monitor BP, HR and U.O. Check labs in AM. Will follow Consult Dictated # [id number] Jace Castellon MD Oct 04, 2018 16:04
--- NOTE | 2018-10-04 16:40 | General Progress Note ---
Progress Note Progress Note Feeling better. T 100.6 now afebrile. BP up with additional fluid Hgb 8.5 (stable) Platelets 129,000 (will d/c toradol) K 3.5 BUN [address] Castellon's consultation Imp. Stable with ileus and atelectasis and third-spacing Plan: continue current regimen mobilize in AM when BP more normal Kian Dominguez MD Oct 04, 2018 16:40
[2018-10-04] MEDS ORDERED: oxyCODONE HCL/Acetaminophen 5/325mg ORAL PRN (16:45)
[2018-10-04] MEDS: LORazepam 1mg tab SL PRN (19:47)
[2018-10-04] MEDS: Dyna-Hex 2% Top Sol 2oz TOPIC SCH (20:00)
[2018-10-04] MEDS ORDERED: Ketorolac 30mg Inj IV SCH (20:40)
[2018-10-04] MEDS: Iron Sucrose 100 MG in NS 55 ML IV SCH (21:09)
[2018-10-04] MEDS: Metoprolol 25mg tab ORAL SCH ×2 (21:10→22:52)
--- NOTE | 2018-10-04 21:30 | General Progress Note ---
Progress Note Progress Note Having severe abdominal pain despite the Fentanyl 25mcg patch, a dose of Toradol 30mg IV (despite decreased platelet count), and percocet po. Abdomen is not distended, soft, incision clean, MINESH drain serosang, ileostomy RLQ is pink with effluent in bag VS with BP and P up due to pain; urine clear Imp. 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 At that time the Fentanyl transderm patch was very effective. Discussed with pharmacist Kian Dominguez MD Oct 04, 2018 21:30
--- NOTE | 2018-10-04 21:45 | Consultation ---
DATE OF CONSULTATION: 10/04/2018 CARDIOLOGY CONSULTATION CONSULTING PHYSICIAN: Jace Castellon M.D. ATTENDING PHYSICIAN: Kian Dominguez M.D. REASON FOR CONSULTATION: Hypotension and history of atrial fibrillation. 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 The patient has had malfunctioning pouch and was admitted for resection of the pouch and creation of an ileostomy. The patient underwent surgical procedure on 10/03/2018 and has had relative hypotension postoperatively. She has required IV fluids at 150 mL an hour with some improvement. The patient's history is significant for episodes of hypotension as well as paroxysmal atrial fibrillation, which she attributes to electrolyte imbalance. The patient has been treated with beta-blockers, metoprolol 50 mg b.i.d. as well as low-dose Zestril 10 mg daily. She also uses propafenone as needed with episodes of atrial fibrillation, which rather infrequent. The patient has been monitoring her rhythm at home and has remained in sinus rhythm. She was in sinus rhythm at the time of admission and throughout the surgery and has had no evidence of atrial fibrillation since admission. Because of her blood pressure variation and some episodes of hypotension, cardiac medications have been held. Cardiac consultation is requested by Dr. Dominguez for management of her cardiac status. PAST MEDICAL HISTORY: 1. Status post proctocolectomy. 2. History of Kock pouch with malfunction. 3. History of fibromyalgia. 4. Hypothyroidism. 5. History of atrial fibrillation as noted above. 6. Status post multiple abdominal surgeries following perineal trauma. 7. Spinal arthritis. 8. History of elevated HDL. MEDICATIONS: At the time of admission, the patient was on Zestril 10 mg daily, metoprolol 50 mg b.i.d., prednisone 5 mg daily, Tylenol, and Advil p.r.n. Currently, the patient is on fentanyl patch for pain control as well as hydrocortisone 100 mg daily, Mylanta p.r.n., lorazepam p.r.n., Zofran p.r.n., Synthroid 100 mcg daily, clindamycin IV, Zosyn IV, iron IV, and propafenone p.r.n. REVIEW OF SYSTEMS: Essentially as noted above. The patient has had episodes of dizziness, but currently denies dizziness. No shortness of breath or chest pain. She lives in active lifestyle and has no cardiac limitations. She denies history of coronary artery disease. Her last stress test was about three years ago, which reportedly was negative. PHYSICAL EXAMINATION: VITAL SIGNS: Blood pressure was 86/60 initially, which improved to 102 systolic after IV normal saline 250 mL of bolus. Heart rate is 88 and temperature 100.3. GENERAL: The patient is alert, oriented, and pleasant female, in mild discomfort. HEENT: Unremarkable. NECK: Supple. LUNGS: Without wheezes or rales, but have diminished breath sounds at both bases. CARDIAC: S1 and S2 are normal without S3 or S4. Jugular venous pressure is about 3 to 4 centimeters of water. Carotids have good upstroke and volume bilaterally without bruits. ABDOMEN: Soft and diffusely tender. Bowel sounds are reduced. Ileostomy site appears to be stable. EXTREMITIES: Without cyanosis, clubbing, or edema. LABORATORY AND DIAGNOSTIC DATA: EKG shows normal sinus rhythm without evidence of ischemia. Laboratory data reviewed. Hemoglobin is 8.5, hematocrit 26.0, and WBC is 10.0. Sodium 144, potassium 3.5, chloride 113, BUN is 13, creatinine 0.6, glucose 135, and calcium is 7.7. IMPRESSION: 1. Malfunctioning Kock pouch, status post excision of pouch and creation of new ileostomy. 2. Paroxysmal atrial fibrillation, currently stable. 3. Hypotension may be due to mild hypovolemia and possible effect of medications. 4. History of paroxysmal atrial fibrillation, currently in sinus rhythm. 5. Fibromyalgia. 6. Hypothyroidism. 7. Hypokalemia. 8. History of hypertension, currently stable. PLAN AND SUGGESTIONS: The patient has been given 250 mL of normal saline bolus with some improvement of her blood pressure. At this point, we will continue IV fluids ordered by Dr. Dominguez, total 150 mL/hour. We will start the patient on low-dose metoprolol tartrate 25 mg b.i.d. to avoid rebound effects of metoprolol or tachyphylaxis. We will also hold Zestril as it is not indicated at this time. We will monitor blood pressure and adjust medications as needed. Since the patient is in sinus rhythm and her EKG is essentially unremarkable, we will not initiate further workup, but continue to monitor for any change in her status. We will monitor urine output and I and Os to avoid fluid overload. We will check thyroid functions in a.m. along with CBC and BMP with magnesium level. Dr. Dominguez, thank you for allowing me to participate in the care of this patient and I will be happy to follow with you as necessary. Jace Castellon M.D. DR: CESAR JOB#: [id number] CC:
[2018-10-05] VITALS (7 sets, daily range): BP systolic 85–139; BP diastolic 53–83
[2018-10-05] MEDS: CLINDAMYCIN IV SCH ×4 (01:01→06:32)
[2018-10-05] MEDS: NS w/KCl 40mEq 1,000 ML IV SCH (01:01)
[2018-10-05] MEDS: [UNRECOGNIZED DRUG - OTHER] IV SCH (01:01)
[2018-10-05] MEDS: Ampicillin/Sulbactam Sod 3 GM in NS 110 ML IVPB SCH ×5 (01:02→23:54)
[2018-10-05] MEDS: D5 1/2NS w/KCl 40meq 1000ml 1,000 ML IV SCH ×4 (01:29→23:54)
[2018-10-05] MEDS: NS IV SCH ×3 (06:32)
[2018-10-05 07:18] LABS: BASOPHILS % (AUTO) 0.4 % (0.0-2.0); EOSINOPHILS % (AUTO) 0.2 % (0.0-3.0); HEMATOCRIT 24.2 % (37.0-47.0); HEMOGLOBIN 8.1 G/DL (12.0-16.0); LYMPHOCYTES % (AUTO) 6.2 % (20.0-45.0); MEAN CORPUSCULAR VOLUME 99 FL (80-99); MONOCYTES % (AUTO) 10.1 % (1.0-10.0); NEUTROPHILS % (AUTO) 83.2 % (45.0-75.0); PLATELET COUNT 114 K/UL (150-450); RED BLOOD COUNT 2.45 M/UL (4.20-5.40); RED CELL DISTRIBUTION WIDTH 13.3 % (11.6-14.8); WHITE BLOOD COUNT 9.5 K/UL (4.8-10.8)
--- NOTE | 2018-10-05 07:37 | General Progress Note ---
Progress Note Progress Note T 100.6 yesterday and afebrile since Pain is now under control with Fentanyl 50mcg patch + Percocet 10/325 po Abdomen soft, minimal distention, incision clean, stoma pink Urine 860cc / 24hrs Ileostomy 390 bilious MINESH 100 serosang WBC 9500 Hgb 8.1 (stable - dilutional to large degree likely) Platelets 114,000 Mg 1.7 BMP pending Imp. Hypotension improving slowly Low urine output but not concentrated Ileus Atelectasis Plan: Mobilize continue npo IV Mg infusion continue Acosta (pelvic dissection + low output with impending spontaneous diuresis in 24-48 hours) Kian Dominguez MD Oct 05, 2018 07:37
[2018-10-05 07:46] LABS: ALANINE AMINOTRANSFERASE 41 U/L (12-78); ALBUMIN 2.5 G/DL (3.4-5.0); ALKALINE PHOSPHATASE 64 U/L (46-116); ANION GAP 6 mmol/L (5-15); ASPARTATE AMINO TRANSFERASE 26 U/L (15-37); BILIRUBIN,TOTAL 0.3 MG/DL (0.2-1.0); BLOOD UREA NITROGEN 12 mg/dL (7-18); CALCIUM 7.8 MG/DL (8.5-10.1); CARBON DIOXIDE 22 MMOL/L (21-32); CHLORIDE 115 MMOL/L (98-107); CREATININE 0.7 MG/DL (0.55-1.30); POTASSIUM 4.5 MMOL/L (3.5-5.1); SODIUM 143 MMOL/L (136-145)
[2018-10-05] MEDS: Pantoprazole Inj IVP SCH (08:53)
[2018-10-05] MEDS: Metoprolol 25mg tab ORAL SCH ×2 (08:53→20:28)
[2018-10-05] MEDS: Hydrocortisone 100mg Inj IV SCH ×2 (08:53→20:28)
[2018-10-05] MEDS: LORazepam 1mg tab SL PRN ×2 (10:43→16:48)
--- NOTE | 2018-10-05 13:48 | Diagnostic Imaging Report ---
Indication: Dyspnea Comparison: 10/02/2018 A single view chest radiograph was obtained. Findings: Mild basal atelectasis demonstrated with low lung volumes. Borderline cardiomegaly demonstrated. PICC line is stable. IMPRESSION: No change accounting for differences in lung volume
--- NOTE | 2018-10-05 17:16 | Cardiology Progress Note ---
Assessment/Plan Status Narrative 1. s/p Ileostomy placement 2. H/O A. Fib 3. Atelectasis- by CXR 4. Hypoxemia- due to above 5. Abdominal pain 6. Dehydration- improved 7. Hypothydism Assessment/Plan IV fluids at 125 cc/h I/S Q 1h Up in chair, ambulate Monitor O2 Sat. Continue Metoprolol 25 mg BID Discussed with Patient and with RN. Subjective Cardiovascular: Reports: no symptoms; Denies: chest pain Respiratory: Reports: cough Gastrointestinal/Abdominal: Reports: abdominal pain, other - watery dc from ileostomy Genitourinary: Reports: no symptoms Subjective 10/05- Has had abdominal pain, was up in chair, had decreased O2 Sat. Objective Last 24 Hour Vital Signs Date Time Temp Pulse Resp B/P (MAP) Pulse Ox O2 Delivery O2 Flow Rate FiO2 10/05/18 12:00 98.2 82 19 113/72 (86) 92 10/05/18 09:00 Room Air 10/05/18 08:53 82 98/61 10/05/18 08:00 98.3 82 20 98/61 (73) 95 10/05/18 04:15 84 96/56 (69) 10/05/18 04:00 98.2 75 18 85/53 (64) 10/05/18 00:00 98.6 93 18 120/69 (86) 10/04/18 22:52 104 112/64 10/04/18 21:00 Room Air 10/04/18 20:00 98.1 95 20 110/64 (79) General Appearance: no apparent distress, alert Cardiovascular: normal rate, regular rhythm Respiratory/Chest: no respiratory distress, decreased breath sounds Abdomen: soft, tender Extremities: non-tender, normal inspection, no calf tenderness, no swelling Intake and Output 10/04/18 10/05/18 19:00 07:00 Intake Total 150 ml 1950 ml Output Total 590 ml 760 ml Balance -440 ml 1190 ml IV Total 150 ml 1950 ml Output Urine Total 450 ml 410 ml Drainage Total 50 ml 50 ml Other 90 ml 300 ml Laboratory Tests Test 10/05/18 06:25 White Blood Count 9.5 K/UL (4.8-10.8) Red Blood Count 2.45 M/UL (4.20-5.40) L Hemoglobin 8.1 G/DL (12.0-16.0) L Hematocrit 24.2 % (37.0-47.0) L Mean Corpuscular Volume 99 FL (80-99) Mean Corpuscular Hemoglobin 32.9 PG (27.0-31.0) H Mean Corpuscular Hemoglobin Concent 33.4 G/DL (32.0-36.0) Red Cell Distribution Width 13.3 % (11.6-14.8) Platelet Count 114 K/UL (150-450) L Mean Platelet Volume 7.8 FL (6.5-10.1) Neutrophils (%) (Auto) 83.2 % (45.0-75.0) H Lymphocytes (%) (Auto) 6.2 % (20.0-45.0) L Monocytes (%) (Auto) 10.1 % (1.0-10.0) H Eosinophils (%) (Auto) 0.2 % (0.0-3.0) Basophils (%) (Auto) 0.4 % (0.0-2.0) Sodium Level 143 MMOL/L (136-145) Potassium Level 4.5 MMOL/L (3.5-5.1) Chloride Level 115 MMOL/L (98-107) H Carbon Dioxide Level 22 MMOL/L (21-32) Anion Gap 6 mmol/L (5-15) Blood Urea Nitrogen 12 mg/dL (7-18) Creatinine 0.7 MG/DL (0.55-1.30) Estimat Glomerular Filtration Rate > 60 mL/min (>60) Glucose Level 110 MG/DL (74-106) H Calcium Level 7.8 MG/DL (8.5-10.1) L Magnesium Level 1.7 MG/DL (1.8-2.4) L Total Bilirubin 0.3 MG/DL (0.2-1.0) Aspartate Amino Transf (AST/SGOT) 26 U/L (15-37) Alanine Aminotransferase (ALT/SGPT) 41 U/L (12-78) Alkaline Phosphatase 64 U/L (46-116) Total Protein 4.9 G/DL (6.4-8.2) L Albumin 2.5 G/DL (3.4-5.0) L Globulin 2.4 g/dL Albumin/Globulin Ratio 1.0 (1.0-2.7) Thyroid Stimulating Hormone (TSH) 0.168 uiU/mL (0.358-3.740) Jace Castellon MD Oct 05, 2018 17:16
[2018-10-05] MEDS: Dyna-Hex 2% Top Sol 2oz TOPIC SCH (20:26)
[2018-10-05] MEDS: Iron Sucrose 100 MG in NS 55 ML IV SCH (20:30)
[2018-10-06] VITALS (9 sets, daily range): BP systolic 104–158; BP diastolic 64–87
[2018-10-06] MEDS: LORazepam 1mg tab SL PRN (03:37)
[2018-10-06] MEDS: Ampicillin/Sulbactam Sod 3 GM in NS 110 ML IVPB SCH ×3 (05:41→18:00)
[2018-10-06] MEDS: Hydrocortisone 100mg Inj IV SCH ×2 (08:58→22:40)
[2018-10-06] MEDS: Metoprolol 25mg tab ORAL SCH ×2 (08:58→22:43)
[2018-10-06] MEDS: Pantoprazole Inj IVP SCH (08:58)
--- NOTE | 2018-10-06 09:08 | General Progress Note ---
Progress Note Progress Note Afebrile with normal BP now. comfortable with Fentanyl patch 50mcg. Ambulated in hallways x 2 chest clear with decreased expansion - CXR ok Abdomen soft, incision clean, stoma pink Urine 875 Ileostomy 475 MINESH drain 80 Labs all pending Imp. Ileus, resolving Atelectasis Plan: continue npo, no (awaiting spontaneous diuresis phase of recovery, + pelvic dissection) Kian Dominguez MD Oct 06, 2018 09:08
[2018-10-06 09:41] LABS: BASOPHILS % (AUTO) 0.6 % (0.0-2.0); EOSINOPHILS % (AUTO) 1.4 % (0.0-3.0); HEMATOCRIT 25.9 % (37.0-47.0); HEMOGLOBIN 8.5 G/DL (12.0-16.0); LYMPHOCYTES % (AUTO) 9.1 % (20.0-45.0); MEAN CORPUSCULAR VOLUME 98 FL (80-99); MONOCYTES % (AUTO) 9.6 % (1.0-10.0); NEUTROPHILS % (AUTO) 79.4 % (45.0-75.0); PLATELET COUNT 122 K/UL (150-450); RED BLOOD COUNT 2.63 M/UL (4.20-5.40); WHITE BLOOD COUNT 10.2 K/UL (4.8-10.8)
[2018-10-06 09:45] LABS: ANION GAP 7 mmol/L (5-15); BLOOD UREA NITROGEN 10 mg/dL (7-18); CALCIUM 8.2 MG/DL (8.5-10.1); CARBON DIOXIDE 21 MMOL/L (21-32); CHLORIDE 113 MMOL/L (98-107); CREATININE 0.6 MG/DL (0.55-1.30); POTASSIUM 3.9 MMOL/L (3.5-5.1); SODIUM 141 MMOL/L (136-145)
[2018-10-06 09:51] LABS: IRON 38 ug/dL (50-175)
[2018-10-06 10:06] LABS: PHOSPHORUS 1.4 MG/DL (2.5-4.9)
[2018-10-06] MEDS: D5 1/2NS w/KCl 40meq 1000ml 1,000 ML IV SCH ×2 (11:38→22:41)
--- NOTE | 2018-10-06 13:13 | Cardiology Progress Note ---
Assessment/Plan Status Narrative 1. s/p Ileostomy placement 2. H/O A. Fib- stable 3. Atelectasis- by CXR 4. Hypoxemia- due to above- improving 5. Abdominal pain 6. Dehydration- improved 7. Hypothydism- Now with low level of TSH.may need to reduce dose of Sythroid 8. Anemia 9. Hypotension -improved Assessment/Plan IV fluids at 125 cc/h I/S Q 1h Up in chair, ambulate Monitor O2 Sat. Continue Metoprolol 25 mg BID Consider decreasing Synthroid to 75 mcg/day- Will wait until ready for DC. Discussed with Patient and with RN. Subjective Cardiovascular: Reports: no symptoms Respiratory: Reports: cough Gastrointestinal/Abdominal: Reports: abdominal pain - improved Genitourinary: Reports: no symptoms Subjective 10/05- Has had abdominal pain, was up in chair, had decreased O2 Sat. 10/06- Abdominal pain improving. Ambulated Objective Last 24 Hour Vital Signs Date Time Temp Pulse Resp B/P (MAP) Pulse Ox O2 Delivery O2 Flow Rate FiO2 10/06/18 09:49 98.8 10/06/18 09:00 Room Air 10/06/18 08:58 75 116/74 10/06/18 08:00 98.1 75 19 116/74 (88) 98 10/06/18 04:00 98.8 86 20 131/81 (98) 94 10/06/18 00:00 99.8 82 19 113/72 (86) 94 10/05/18 21:00 Nasal Cannula 3.0 10/05/18 20:28 97 147/89 10/05/18 20:00 98.9 93 20 139/80 (99) 94 10/05/18 16:00 98.8 85 20 134/83 (100) 95 Neck: supple Cardiovascular: normal rate, regular rhythm Respiratory/Chest: decreased breath sounds Abdomen: no organomegaly, hypoactive bowel sounds, tender Extremities: normal range of motion, non-tender, normal inspection, no calf tenderness, no swelling Intake and Output 10/05/18 10/06/18 18:59 06:59 Intake Total 1545 ml 1235 ml Output Total 680 ml Balance 1545 ml 555 ml IV Total 1545 ml 1235 ml Output Urine Total 475 ml Drainage Total 30 ml Other 175 ml Laboratory Tests Test 10/06/18 09:20 White Blood Count 10.2 K/UL (4.8-10.8) Red Blood Count 2.63 M/UL (4.20-5.40) L Hemoglobin 8.5 G/DL (12.0-16.0) L Hematocrit 25.9 % (37.0-47.0) L Mean Corpuscular Volume 98 FL (80-99) Mean Corpuscular Hemoglobin 32.3 PG (27.0-31.0) H Mean Corpuscular Hemoglobin Concent 32.8 G/DL (32.0-36.0) Red Cell Distribution Width 13.0 % (11.6-14.8) Platelet Count 122 K/UL (150-450) L Mean Platelet Volume 8.0 FL (6.5-10.1) Neutrophils (%) (Auto) 79.4 % (45.0-75.0) H Lymphocytes (%) (Auto) 9.1 % (20.0-45.0) L Monocytes (%) (Auto) 9.6 % (1.0-10.0) Eosinophils (%) (Auto) 1.4 % (0.0-3.0) Basophils (%) (Auto) 0.6 % (0.0-2.0) Sodium Level 141 MMOL/L (136-145) Potassium Level 3.9 MMOL/L (3.5-5.1) Chloride Level 113 MMOL/L (98-107) H Carbon Dioxide Level 21 MMOL/L (21-32) Anion Gap 7 mmol/L (5-15) Blood Urea Nitrogen 10 mg/dL (7-18) Creatinine 0.6 MG/DL (0.55-1.30) Estimat Glomerular Filtration Rate > 60 mL/min (>60) Glucose Level 103 MG/DL (74-106) Calcium Level 8.2 MG/DL (8.5-10.1) L Phosphorus Level 1.4 MG/DL (2.5-4.9) L Magnesium Level 2.0 MG/DL (1.8-2.4) Iron Level 38 ug/dL (50-175) L Jace Castellon MD Oct 06, 2018 13:13
[2018-10-06] MEDS ORDERED: Potassium Phosphate 30 MM in NS 275ml IV SCH (14:00)
[2018-10-06] MEDS ORDERED: Tubing IV Secondary IV ONE (15:30)
[2018-10-06] MEDS ORDERED: fentaNYL Destruction MISC SCH ×2 (16:00)
[2018-10-06] MEDS ORDERED: Naloxone 0.4mg/ml Inj IV PRN (16:00)
[2018-10-06] MEDS: Iron Sucrose 100 MG in NS 55 ML IV SCH (22:41)
[2018-10-06] MEDS: Dyna-Hex 2% Top Sol 2oz TOPIC SCH (22:43)
[2018-10-07] VITALS (8 sets, daily range): BP systolic 120–157; BP diastolic 70–96
[2018-10-07] MEDS: Ampicillin/Sulbactam Sod 3 GM in NS 110 ML IVPB SCH ×6 (00:55→23:53)
[2018-10-07] MEDS: LORazepam 1mg tab SL PRN ×2 (00:55→20:50)
[2018-10-07] MEDS: D5 1/2NS w/KCl 40meq 1000ml 1,000 ML IV SCH ×3 (04:43→19:02)
[2018-10-07 05:30] LABS: HEMATOCRIT 29.3 % (37.0-47.0); HEMOGLOBIN 9.7 G/DL (12.0-16.0); MEAN CORPUSCULAR VOLUME 95 FL (80-99); PLATELET COUNT 105 K/UL (150-450); RED BLOOD COUNT 3.07 M/UL (4.20-5.40); RED CELL DISTRIBUTION WIDTH 14.5 % (11.6-14.8)
[2018-10-07 05:36] LABS: ANION GAP 8 mmol/L (5-15); BLOOD UREA NITROGEN 9 mg/dL (7-18); CALCIUM 8.1 MG/DL (8.5-10.1); CARBON DIOXIDE 21 MMOL/L (21-32); CHLORIDE 113 MMOL/L (98-107); CREATININE 0.6 MG/DL (0.55-1.30); POTASSIUM 4.4 MMOL/L (3.5-5.1); SODIUM 142 MMOL/L (136-145)
[2018-10-07] MEDS: Metoprolol 25mg tab ORAL SCH ×2 (08:50→20:13)
[2018-10-07] MEDS: Pantoprazole Inj IVP SCH (08:50)
[2018-10-07] MEDS: Hydrocortisone 100mg Inj IV SCH (08:50)
--- NOTE | 2018-10-07 10:31 | General Progress Note ---
Progress Note Progress Note AVSS c/o exertional dyspnea which she has whenever her serum iron is very low, regardless of her Hgb level. Given 1unit PRBC yesterday Abdomen soft, healing nicely Urine 700cc/24 hours Ileostomy 265 MINESH drain 40 WBC 9000 Hgb 9.7 (up from 8.5) Platelets down 105,000 BMP-wnl Iron 38 - she states that Venofer is not retained by her and she requires intectofer which is not available here Imp. Resolving ileus Post-op anemia with chronic iron deficiency Plan; Clear liquid diet (max intake 1200cc tocay) Transfuse second unit PRBC Increase Venofer to 200mg IV daily Phosphate infusion f/u labs ambulate as tolerated plan to d/c no in AM if stable Kian Dominguez MD Oct 07, 2018 10:31
[2018-10-07] MEDS ORDERED: Iron Sucrose 200 MG in NS 110 ML IV SCH (12:00)
[2018-10-07] MEDS ORDERED: Potassium Phosphate 30 MM in NS 275 ML IV SCH (13:00)
[2018-10-07] MEDS ORDERED: NS 500ML ONE (15:47)
[2018-10-07] MEDS ORDERED: NS 275ml ONE (15:47)
[2018-10-07] MEDS: Dyna-Hex 2% Top Sol 2oz TOPIC SCH (20:12)
[2018-10-07] MEDS ORDERED: Hydrocortisone 100mg Inj IV SCH (21:00)
[2018-10-08] VITALS: BP 125/74
[2018-10-08 04:00] VITALS: BP 149/85
[2018-10-08] MEDS: D5 1/2NS w/KCl 40meq 1000ml 1,000 ML IV SCH ×2 (04:15→14:45)
[2018-10-08] MEDS: Ampicillin/Sulbactam Sod 3 GM in NS 110 ML IVPB SCH (05:34)
[2018-10-08 06:09] LABS: BASOPHILS % (AUTO) 0.6 % (0.0-2.0); EOSINOPHILS % (AUTO) 1.9 % (0.0-3.0); HEMATOCRIT 33.9 % (37.0-47.0); HEMOGLOBIN 11.2 G/DL (12.0-16.0); LYMPHOCYTES % (AUTO) 8.3 % (20.0-45.0); MEAN CORPUSCULAR VOLUME 94 FL (80-99); MONOCYTES % (AUTO) 8.3 % (1.0-10.0); PLATELET COUNT 138 K/UL (150-450); RED BLOOD COUNT 3.61 M/UL (4.20-5.40); RED CELL DISTRIBUTION WIDTH 14.9 % (11.6-14.8); WHITE BLOOD COUNT 9.3 K/UL (4.8-10.8)
[2018-10-08 06:25] LABS: ALANINE AMINOTRANSFERASE 32 U/L (12-78); ALBUMIN 2.8 G/DL (3.4-5.0); ALBUMIN/GLOBULIN RATIO 0.9 (1.0-2.7); ALKALINE PHOSPHATASE 77 U/L (46-116); ANION GAP 12 mmol/L (5-15); ASPARTATE AMINO TRANSFERASE 18 U/L (15-37); BILIRUBIN,TOTAL 0.4 MG/DL (0.2-1.0); BLOOD UREA NITROGEN 8 mg/dL (7-18); CALCIUM 8.4 MG/DL (8.5-10.1); CARBON DIOXIDE 19 MMOL/L (21-32); CHLORIDE 110 MMOL/L (98-107); CREATININE 0.7 MG/DL (0.55-1.30); IRON 79 ug/dL (50-175); PHOSPHORUS 2.1 MG/DL (2.5-4.9); POTASSIUM 3.6 MMOL/L (3.5-5.1); SODIUM 141 MMOL/L (136-145)
[2018-10-08 08:00] VITALS: BP 154/94
--- NOTE | 2018-10-08 08:46 | General Progress Note ---
Progress Note Progress Note AVSS. c/o exertional dyspnea due to low serum iron (regardless of Hgb) and that IV iron given as Venofer does not raise her serum iron levels. tolerated clear liquid diet Abdomen soft, healing nicely Urine 875 Ileostomy 540 MINESH 40 WBC 9300 Hgb 11.2 Platelets up 138,000 Phoss 2.1 Mg 1.6 Imp. Improving but exertional dyspnea due to low serum iron not helped by Venofer infusion Plan: low residue diet d/c urinary Acosta continue strict I&O Mg and P infusions, decrease IV fluids Hematology consultation re serum iron/exertional dyspnea/need for other IV iron instead of Venofer (no other infusion is available in pharmacy) f/u labs Kian Dominguez MD Oct 08, 2018 08:46
[2018-10-08] MEDS: Metoprolol 25mg tab ORAL SCH ×2 (09:59→21:21)
[2018-10-08] MEDS ORDERED: Potassium Phosphate 30 MM in NS 275 ML IV ONE (10:30)
[2018-10-08] MEDS ORDERED: Tubing Blood Filter IV ONE (11:00)
[2018-10-08] MEDS ORDERED: NS 275ml ONE (11:00)
[2018-10-08 12:00] VITALS: BP 138/88
--- NOTE | 2018-10-08 12:08 | Cardiology Progress Note ---
Assessment/Plan Status Narrative 1. s/p Ileostomy placement 2. H/O A. Fib- stable 3. Atelectasis- by CXR 4. Hypoxemia- due to above- improving 5. Abdominal pain 6. Dehydration- improved 7. Hypothydism- Now with low level of TSH.may need to reduce dose of Synthroid 8. Anemia 9. Hypotension -improved 10. WALTER- ? etio- r/o CHF, PE, underlying pulmonary Dz vs. Fe deficiency Assessment/Plan IV fluids decreased I/S Q 1h Up in chair, ambulate Monitor O2 Sat. Continue Metoprolol 25 mg BID Consider decreasing Synthroid to 75 mcg/day- Will wait until ready for DC. 2D Echo to assess LV Fn. Venous duplex scan LE to r/o DVT EKG Will discuss with Hematology. Discussed with Patient and with RN. Subjective Cardiovascular: Reports: other - WALTER Respiratory: Reports: shortness of breath, SOB with excertion Gastrointestinal/Abdominal: Reports: abdominal pain Genitourinary: Reports: no symptoms Subjective 10/05- Has had abdominal pain, was up in chair, had decreased O2 Sat. 10/06- Abdominal pain improving. Ambulated\ 10/08- c/o WALTER with minimal exertion. Feels this is due to low iron levels. Has had similar Sx in the past with low Fe levels. Objective Last 24 Hour Vital Signs Date Time Temp Pulse Resp B/P (MAP) Pulse Ox O2 Delivery O2 Flow Rate FiO2 10/08/18 09:59 61 154/94 10/08/18 09:00 Room Air 10/08/18 08:00 98.1 61 19 154/94 (114) 99 10/08/18 04:00 98.4 64 18 149/85 (106) 95 10/08/18 00:00 98.5 72 19 125/74 (91) 95 10/07/18 21:00 Room Air 10/07/18 20:13 95 157/96 10/07/18 20:00 98.4 70 19 153/84 (107) 10/07/18 16:00 98.8 95 20 157/96 (116) 10/07/18 14:30 98.1 73 22 147/91 (109) 97 10/07/18 12:19 98.4 Cardiovascular: normal rate, regular rhythm Respiratory/Chest: decreased breath sounds Abdomen: normal bowel sounds, soft, no organomegaly, no mass, tender Intake and Output 10/07/18 10/08/18 19:00 07:00 Intake Total 1995 ml 1550 ml Output Total 785 ml 670 ml Balance 1210 ml 880 ml Intake Oral 765 ml 300 ml IV Total 980 ml 1250 ml Blood Product 250 ml Output Urine Total 475 ml 400 ml Drainage Total 20 ml 20 ml Other 290 ml 250 ml Laboratory Tests Test 10/08/18 05:00 White Blood Count 9.3 K/UL (4.8-10.8) Red Blood Count 3.61 M/UL (4.20-5.40) L Hemoglobin 11.2 G/DL (12.0-16.0) L Hematocrit 33.9 % (37.0-47.0) L Mean Corpuscular Volume 94 FL (80-99) Mean Corpuscular Hemoglobin 31.0 PG (27.0-31.0) Mean Corpuscular Hemoglobin Concent 32.9 G/DL (32.0-36.0) Red Cell Distribution Width 14.9 % (11.6-14.8) H Platelet Count 138 K/UL (150-450) L Mean Platelet Volume 7.6 FL (6.5-10.1) Neutrophils (%) (Auto) 81.0 % (45.0-75.0) H Lymphocytes (%) (Auto) 8.3 % (20.0-45.0) L Monocytes (%) (Auto) 8.3 % (1.0-10.0) Eosinophils (%) (Auto) 1.9 % (0.0-3.0) Basophils (%) (Auto) 0.6 % (0.0-2.0) Sodium Level 141 MMOL/L (136-145) Potassium Level 3.6 MMOL/L (3.5-5.1) Chloride Level 110 MMOL/L (98-107) H Carbon Dioxide Level 19 MMOL/L (21-32) L Anion Gap 12 mmol/L (5-15) Blood Urea Nitrogen 8 mg/dL (7-18) Creatinine 0.7 MG/DL (0.55-1.30) Estimat Glomerular Filtration Rate > 60 mL/min (>60) Glucose Level 131 MG/DL (74-106) H Calcium Level 8.4 MG/DL (8.5-10.1) L Phosphorus Level 2.1 MG/DL (2.5-4.9) L Magnesium Level 1.6 MG/DL (1.8-2.4) L Iron Level 79 ug/dL (50-175) Total Bilirubin 0.4 MG/DL (0.2-1.0) Aspartate Amino Transf (AST/SGOT) 18 U/L (15-37) Alanine Aminotransferase (ALT/SGPT) 32 U/L (12-78) Alkaline Phosphatase 77 U/L (46-116) Total Protein 5.9 G/DL (6.4-8.2) L Albumin 2.8 G/DL (3.4-5.0) L Globulin 3.1 g/dL Albumin/Globulin Ratio 0.9 (1.0-2.7) L Jace Castellon MD Oct 08, 2018 12:08
[2018-10-08 14:15] LABS: FERRITIN 909 NG/ML (8-388)
[2018-10-08 14:41] LABS: % IRON SATURATION 25 % (15-50); IRON 35 ug/dL (50-175); TOTAL IRON BINDING CAPACITY 141 ug/dL (250-450)
[2018-10-08] MEDS ORDERED: Iron Sucrose 200 MG in NS 110 ML IV ONE (15:00)
[2018-10-08 16:00] VITALS: BP 167/92
[2018-10-08 20:00] VITALS: BP 148/77
[2018-10-08] MEDS: Dyna-Hex 2% Top Sol 2oz TOPIC SCH (20:00)
[2018-10-08] MEDS ORDERED: LORazepam 1mg tab SL PRN (21:00)
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
[2018-10-09 00:51] VITALS: BP 135/69
[2018-10-09 04:48] VITALS: BP 146/91
[2018-10-09 06:05] LABS: BASOPHILS % (AUTO) 0.5 % (0.0-2.0); EOSINOPHILS % (AUTO) 2.9 % (0.0-3.0); HEMATOCRIT 36.2 % (37.0-47.0); HEMOGLOBIN 12.2 G/DL (12.0-16.0); LYMPHOCYTES % (AUTO) 6.6 % (20.0-45.0); MEAN CORPUSCULAR VOLUME 95 FL (80-99); PLATELET COUNT 143 K/UL (150-450); RED BLOOD COUNT 3.83 M/UL (4.20-5.40); RED CELL DISTRIBUTION WIDTH 14.3 % (11.6-14.8); WHITE BLOOD COUNT 8.9 K/UL (4.8-10.8)
[2018-10-09 06:21] LABS: ANION GAP 8 mmol/L (5-15); BLOOD UREA NITROGEN 6 mg/dL (7-18); CALCIUM 8.2 MG/DL (8.5-10.1); CARBON DIOXIDE 24 MMOL/L (21-32); CHLORIDE 109 MMOL/L (98-107); CREATININE 0.8 MG/DL (0.55-1.30); PHOSPHORUS 2.7 MG/DL (2.5-4.9); POTASSIUM 3.6 MMOL/L (3.5-5.1); SODIUM 141 MMOL/L (136-145)
[2018-10-09 06:35] LABS: IRON 46 ug/dL (50-175)
[2018-10-09 08:00] VITALS: BP 154/84
[2018-10-09] MEDS: Metoprolol 25mg tab ORAL SCH ×2 (09:03→21:31)
[2018-10-09] MEDS: D5 1/2NS w/KCl 40meq 1000ml 1,000 ML IV SCH (09:04)
[2018-10-09] MEDS ORDERED: Potassium Phosphate 30 MM in NS 275 ML IV SCH (10:00)
--- NOTE | 2018-10-09 11:50 | General Progress Note ---
Progress Note Progress Note AVSS c/o suprapubic pain - ?: urinary vs incisional. Voiding well and spontaneous diuresis ongoing Abdomen soft, healing nicely Urine 2800 Ileostomy 1638 MINESH 75 Hgb 12.2 Iron 46 P and Mg lower level of normal Imp. Improving Plan: Infusion of P and Mg today f/u labs U/A and urine C&S May need lomotil with meals and hs for high volume ileostomy output s/p shortened small bowel length with resection of Kock Pouch follow strict I&O Kian Dominguez MD Oct 09, 2018 11:50
[2018-10-09 12:00] VITALS: BP 114/64
[2018-10-09] MEDS ORDERED: Iron Sucrose 200 MG in NS 110 ML IV SCH (13:00)
[2018-10-09 13:35] LABS: APPEARANCE,URINE CLEAR; BILIRUBIN, URINE NEGATIVE (NEGATIVE); COLOR,URINE PALE YELLOW; GLUCOSE, URINE (UA) NEGATIVE (NEGATIVE); KETONES,URINE NEGATIVE (NEGATIVE); LEUKOCYTE ESTERASE ,URINE 1+ (NEGATIVE); NITRITE,URINE NEGATIVE (NEGATIVE); PH,URINE 5 (4.5-8.0); PROTEIN,URINE NEGATIVE (NEGATIVE); UROBILINOGEN,URINE NORMAL MG/DL (0.0-1.0)
[2018-10-09 16:00] VITALS: BP 147/83
[2018-10-09] MEDS ORDERED: fentaNYL Destruction MISC SCH (16:00)
--- NOTE | 2018-10-09 16:03 | Cardiology Progress Note ---
Assessment/Plan Status Narrative 1. s/p Ileostomy placement 2. H/O A. Fib- stable 3. Atelectasis- by CXR 4. Hypoxemia- due to above- improving 5. Abdominal pain 6. Dehydration- improved 7. Hypothydism- Now with low level of TSH.may need to reduce dose of Synthroid 8. Anemia 9. Hypotension -improved 10. WALTER- ? etio- r/o CHF, PE, underlying pulmonary Dz vs. Fe deficiency- need to r/o ischemia 11. Atelectasis Assessment/Plan Trial of resp Tx and CPT to improve aeration at bases I/S Q 1h Up in chair, ambulate Monitor O2 Sat. Continue Metoprolol 25 mg BID Consider decreasing Synthroid to 75 mcg/day- Will wait until ready for DC. 2D Echo to assess LV Fn. Rued out DVT Echo to be reviewed Plan Lexiscan nuclear stress test when stable. discussed with Hematology. Discussed with Patient and with RN. Subjective Cardiovascular: Reports: palpitations Respiratory: Reports: shortness of breath, SOB with excertion Gastrointestinal/Abdominal: Reports: abdomen distended Genitourinary: Reports: no symptoms Subjective 10/05- Has had abdominal pain, was up in chair, had decreased O2 Sat. 10/06- Abdominal pain improving. Ambulated\ 10/08- c/o WALTER with minimal exertion. Feels this is due to low iron levels. Has had similar Sx in the past with low Fe levels. 10/09- [place] less SOB last nite, but today c/o WALTER, Denies CP Objective Last 24 Hour Vital Signs Date Time Temp Pulse Resp B/P (MAP) Pulse Ox O2 Delivery O2 Flow Rate FiO2 10/09/18 12:00 99.5 113 18 114/64 (81) 100 10/09/18 11:10 99.5 10/09/18 09:03 81 154/84 10/09/18 09:00 Nasal Cannula 2.0 10/09/18 08:00 100.2 81 19 154/84 (107) 96 10/09/18 04:48 98.7 72 18 146/91 (109) 96 10/09/18 00:51 97.8 63 18 135/69 (91) 98 10/08/18 21:21 78 167/92 10/08/18 21:00 Room Air 10/08/18 20:00 97.6 72 17 148/77 (100) 98 10/08/18 16:00 99.6 78 19 167/92 (117) 94 Cardiovascular: regular rhythm Respiratory/Chest: lungs clear, decreased breath sounds - at bases Abdomen: hypoactive bowel sounds, distended, tender Extremities: non-tender, trace edema Intake and Output 10/08/18 10/09/18 19:00 07:00 Intake Total 2075.0 ml 1500 ml Output Total 2218 ml 2250 ml Balance -143.0 ml -750 ml Intake Oral 1290 ml 900 ml IV Total 785.0 ml 600 ml Output Urine Total 1200 ml 1600 ml Drainage Total 35 ml Other 983 ml 650 ml # Voids 3 4 Laboratory Tests Test 10/08/18 17:00 10/09/18 05:00 10/09/18 12:45 Urine Total Protein Pending Urine Albumin (%) Pending Urine [id number] (%) Pending Urine [id number] (%) Pending Urine Beta-Globulin (%) Pending Urine Gamma Globulin (%) Pending Ur Protein Electrophoresis M-[place] Pending Urine Protein Electrophoresis Intrp Pending Urine Immunofixation Pending White Blood Count 8.9 K/UL (4.8-10.8) Red Blood Count 3.83 M/UL (4.20-5.40) L Hemoglobin 12.2 G/DL (12.0-16.0) Hematocrit 36.2 % (37.0-47.0) L Mean Corpuscular Volume 95 FL (80-99) Mean Corpuscular Hemoglobin 31.7 PG (27.0-31.0) H Mean Corpuscular Hemoglobin Concent 33.5 G/DL (32.0-36.0) Red Cell Distribution Width 14.3 % (11.6-14.8) Platelet Count 143 K/UL (150-450) L Mean Platelet Volume 8.1 FL (6.5-10.1) Neutrophils (%) (Auto) 83.0 % (45.0-75.0) H Lymphocytes (%) (Auto) 6.6 % (20.0-45.0) L Monocytes (%) (Auto) 7.0 % (1.0-10.0) Eosinophils (%) (Auto) 2.9 % (0.0-3.0) Basophils (%) (Auto) 0.5 % (0.0-2.0) Sodium Level 141 MMOL/L (136-145) Potassium Level 3.6 MMOL/L (3.5-5.1) Chloride Level 109 MMOL/L (98-107) H Carbon Dioxide Level 24 MMOL/L (21-32) Anion Gap 8 mmol/L (5-15) Blood Urea Nitrogen 6 mg/dL (7-18) L Creatinine 0.8 MG/DL (0.55-1.30) Estimat Glomerular Filtration Rate > 60 mL/min (>60) Glucose Level 117 MG/DL (74-106) H Calcium Level 8.2 MG/DL (8.5-10.1) L Phosphorus Level 2.7 MG/DL (2.5-4.9) Magnesium Level 1.9 MG/DL (1.8-2.4) Iron Level 46 ug/dL (50-175) L Urine Color Pale yellow Urine Appearance Clear Urine pH 5 (4.5-8.0) Urine Specific [place] 1.010 (1.005-1.035) Urine Protein Negative (NEGATIVE) Urine Glucose (UA) Negative (NEGATIVE) Urine Ketones Negative (NEGATIVE) Urine Blood Negative (NEGATIVE) Urine Nitrite Negative (NEGATIVE) Urine Bilirubin Negative (NEGATIVE) Urine Urobilinogen Normal MG/DL (0.0-1.0) Urine Leukocyte Esterase 1+ (NEGATIVE) H Urine RBC 0-2 /HPF (0 - 2) Urine WBC 0-2 /HPF (0 - 2) Urine Squamous Epithelial Cells Few /LPF (NONE/OCC) Urine Bacteria Occasional /HPF (NONE) Jace Castellon MD Oct 09, 2018 16:03
[2018-10-09] MEDS: oxyCODONE HCL/Acetaminophen 5/325mg ORAL PRN (16:16)
[2018-10-09] MEDS: Ipratropium 0.02% Inh Soln 2.5ml UD HHN SCH ×3 (19:00→20:55)
[2018-10-09 20:00] VITALS: BP 142/65
[2018-10-09] MEDS: Dyna-Hex 2% Top Sol 2oz TOPIC SCH (21:34)
[2018-10-10] VITALS: BP 141/65
[2018-10-10] MEDS: LORazepam 1mg tab SL PRN (00:31)
[2018-10-10] MEDS: Ipratropium 0.02% Inh Soln 2.5ml UD HHN SCH ×4 (01:00→19:00)
[2018-10-10 04:00] VITALS: BP 140/80
[2018-10-10] MEDS: D5 1/2NS w/KCl 40meq 1000ml 1,000 ML IV SCH ×2 (04:00→15:41)
[2018-10-10 05:23] LABS: BASOPHILS % (AUTO) 0.5 % (0.0-2.0); EOSINOPHILS % (AUTO) 3.5 % (0.0-3.0); HEMATOCRIT 33.9 % (37.0-47.0); HEMOGLOBIN 11.5 G/DL (12.0-16.0); LYMPHOCYTES % (AUTO) 8.8 % (20.0-45.0); MEAN CORPUSCULAR VOLUME 96 FL (80-99); MONOCYTES % (AUTO) 10.1 % (1.0-10.0); NEUTROPHILS % (AUTO) 77.1 % (45.0-75.0); PLATELET COUNT 138 K/UL (150-450); RED BLOOD COUNT 3.52 M/UL (4.20-5.40); RED CELL DISTRIBUTION WIDTH 14.7 % (11.6-14.8); WHITE BLOOD COUNT 7.2 K/UL (4.8-10.8)
[2018-10-10 05:36] LABS: IRON 44 ug/dL (50-175)
[2018-10-10 05:38] LABS: ANION GAP 8 mmol/L (5-15); BLOOD UREA NITROGEN 5 mg/dL (7-18); CALCIUM 8.3 MG/DL (8.5-10.1); CARBON DIOXIDE 23 MMOL/L (21-32); CHLORIDE 108 MMOL/L (98-107); CREATININE 0.7 MG/DL (0.55-1.30); POTASSIUM 3.8 MMOL/L (3.5-5.1); SODIUM 139 MMOL/L (136-145)
[2018-10-10] MEDS: oxyCODONE HCL/Acetaminophen 5/325mg ORAL PRN (07:24)
--- NOTE | 2018-10-10 07:31 | General Progress Note ---
Progress Note Progress Note T100.2 x 1 yesterday AM - afebrile since. Ambulating better without WALTER ABdomen soft, healing well Urine 2750 Ileostomy 950 (eating 60-70%) MINESH 80 WBC 7200 Hgb 11.5 Platelets 138,000 U/A - wnl BMP-wnl Imp. Improved with lower volume ileostomy effluent Plan: Continue IV supplemental fluids one more day Mg and P infusions (low normal range today) Wear abd binder prn with stoma protected Kian Dominguez MD Oct 10, 2018 07:31
--- NOTE | 2018-10-10 07:51 | Cardiology Report ---
APPROVED REPORT EXAM: Two-dimensional and M-mode echocardiogram with Doppler and color Doppler. INDICATION SHORTNESS OF BREATH M-Mode DIMENSIONS IVSd1.7 (0.7-1.1cm)Left Atrium (MM)3.0 (1.6-4.0cm) LVDd2.8 (3.5-5.6cm)Aortic Root3.7 (2.0-3.7cm) PWd0.9 (0.7-1.1cm)Aortic Cusp Exc.1.9 (1.5-2.0cm) IVSs1.9 cm LVDs1.7 (2.5-4.0cm) PWs1.0 cm Normal left ventricular chamber size, systolic function and wall motion . Left ventricular ejection fraction estimated to be 60-65%. No evidence of left ventricular hypertrophy. Anterior Echo-free space, may be due to pericardial fat or effusion. All other cardiac chamber sizes are within normal limits. Focal aortic valve sclerosis with adequate cusp excursion. Mildly thickened mitral valve leaflets with normal excursion. Mitral annulus and aortic root calcification. Pulmonic valve structure not well visualized . Normal tricuspid valve structure. IVC in normal size without physiologic collapse,suggestive of increased RA pressure. A color flow and spectral Doppler study was performed and revealed: No aortic regurgitation. Trace mitral regurgitation. Normal left ventricular diastolic function . Mild tricuspid regurgitation. Tricuspid systolic velocities suggests peak right ventricular systolic pressure of 51mmHg,consistent with moderate pulmonary hypertension .
[2018-10-10 08:00] VITALS: BP 143/80
[2018-10-10] MEDS: Metoprolol 25mg tab ORAL SCH ×2 (08:52→20:27)
[2018-10-10] MEDS ORDERED: Isovue-370 150ml vial INJ PRN (09:30)
[2018-10-10] MEDS ORDERED: Potassium Phosphate 30 MM in NS 275 ML IV SCH (09:30)
[2018-10-10 12:00] VITALS: BP 131/79
--- NOTE | 2018-10-10 12:01 | Diagnostic Imaging Report ---
ndication: Chest pain Technique: IV administration nonionic contrast. Spiral acquisitions obtained from the lung bases to the lung apices. Multiplanar and 3-D reconstructions were generated. Total dose length product 1231.11 mGycm. CTDIvol(s) 42.82 mGy. Dose reduction achieved using automated exposure control Comparison: none Findings: There is good quality opacification of the pulmonary arteries. No intraluminal filling defects or other findings to suggest acute pulmonary embolus are demonstrated. No evidence of thoracic aortic aneurysm or dissection. Normal classic branching anatomy of the great neck vessels. The right hemidiaphragm is markedly elevated. This results in compressive atelectasis of much of the right lower lobe there is trace pleural fluid on the right.. There is also a small left pleural effusion, resulting in compressive atelectasis of much of the left lower lobe. The aerated portions of the lungs demonstrate small focal areas of scarring and pleural thickening. No infiltrates, masses, or nodules. The heart size is normal. There is no evidence of pericardial effusion. No mediastinal or hilar mass or adenopathy. Unremarkable esophagus. The thyroid is unremarkable. There is a left arm PICC The included upper abdominal anatomy is unremarkable. Impression: Negative for acute pulmonary embolus or other acute thoracic vascular pathology. Basilar atelectatic changes as described Small left and trace right pleural effusion PICC The CT scanner at [facility] is accredited by the [employer] and the scans are performed using protocols designed to limit radiation exposure to as low as reasonably achievable to attain images of sufficient resolution adequate for diagnostic evaluation.
[2018-10-10] MEDS ORDERED: Heplock Flush 100 units/ml 3 ml syr INJ SCH (14:27)
--- NOTE | 2018-10-10 15:40 | Cardiology Progress Note ---
Assessment/Plan Status Narrative 1. s/p Ileostomy placement 2. H/O A. Fib- stable 3. Atelectasis- by CXR 4. Hypoxemia- due to above- improving 5. Abdominal pain 6. Dehydration- improved 7. Hypothydism- Now with low level of TSH.may need to reduce dose of Synthroid 8. Anemia 9. Hypotension -improved 10. WALTER- ? etio- r/o CHF, PE, underlying pulmonary Dz vs. Fe deficiency- doubt ischemia. PE ruled out 11. Atelectasis Assessment/Plan Continue CPT to improve aeration at bases I/S Q 1h Up in chair, ambulate Monitor O2 Sat. Continue Metoprolol 25 mg BID Consider decreasing Synthroid to 75 mcg/day- Will wait until ready for DC. Plan Lexiscan nuclear stress test when stable and after DC as ischemia is low probability. discussed with Hematology. Anticipate DC in 2 days. Discussed with Patient and with RN. Subjective Cardiovascular: Reports: no symptoms; Denies: chest pain, palpitations Respiratory: Reports: shortness of breath, SOB with excertion - improved Gastrointestinal/Abdominal: Reports: abdominal pain Genitourinary: Reports: no symptoms Subjective 10/05- Has had abdominal pain, was up in chair, had decreased O2 Sat. 10/06- Abdominal pain improving. Ambulated\ 10/08- c/o WALTER with minimal exertion. Feels this is due to low iron levels. Has had similar Sx in the past with low Fe levels. 10/09- [place] less SOB last nite, but today c/o WALTER, Denies CP 10/10- notes improvement in WALTER, has refused inhalation Tx, bu getting Chest PT , ambulating, using I/S. Had CTA done- No PE. Atelectasis noted. Objective Last 24 Hour Vital Signs Date Time Temp Pulse Resp B/P (MAP) Pulse Ox O2 Delivery O2 Flow Rate FiO2 10/10/18 13:42 Room Air 10/10/18 13:41 Room Air 21 10/10/18 12:00 98.8 70 18 131/79 (96) 94 10/10/18 09:00 Room Air 10/10/18 08:52 77 143/80 10/10/18 08:47 Room Air 10/10/18 08:47 Room Air 21 10/10/18 08:00 97.9 77 18 143/80 (101) 97 10/10/18 04:00 98.2 74 19 140/80 (100) 94 10/10/18 02:55 80 14 Room Air 21 10/10/18 01:13 Room Air 21 10/10/18 01:13 Room Air 21 10/10/18 00:00 98.9 68 19 141/65 (90) 97 10/09/18 21:31 84 154/90 10/09/18 21:00 Room Air 10/09/18 20:00 97.8 71 19 142/65 (90) 99 10/09/18 19:52 80 14 99 Room Air 21 10/09/18 19:41 80 12 98 Room Air 21 10/09/18 16:46 99.5 10/09/18 16:46 99.5 10/09/18 16:00 99.2 80 19 147/83 (104) 97 Cardiovascular: normal rate, regular rhythm Respiratory/Chest: decreased breath sounds - R>L Abdomen: normal bowel sounds, soft, no organomegaly, no mass Extremities: normal range of motion, non-tender, normal inspection, no calf tenderness, no swelling Intake and Output 10/09/18 10/10/18 19:00 07:00 Intake Total 1810.0 ml 1430 ml Output Total 800 ml 1390 ml Balance 1010.0 ml 40 ml Intake Oral 600 ml 1080 ml IV Total 1210.0 ml 350 ml Output Urine Total 550 ml 1050 ml Drainage Total 40 ml Other 250 ml 300 ml # Voids 2 Laboratory Tests Test 10/10/18 05:07 White Blood Count 7.2 K/UL (4.8-10.8) Red Blood Count 3.52 M/UL (4.20-5.40) L Hemoglobin 11.5 G/DL (12.0-16.0) L Hematocrit 33.9 % (37.0-47.0) L Mean Corpuscular Volume 96 FL (80-99) Mean Corpuscular Hemoglobin 32.6 PG (27.0-31.0) H Mean Corpuscular Hemoglobin Concent 33.9 G/DL (32.0-36.0) Red Cell Distribution Width 14.7 % (11.6-14.8) Platelet Count 138 K/UL (150-450) L Mean Platelet Volume 7.3 FL (6.5-10.1) Neutrophils (%) (Auto) 77.1 % (45.0-75.0) H Lymphocytes (%) (Auto) 8.8 % (20.0-45.0) L Monocytes (%) (Auto) 10.1 % (1.0-10.0) H Eosinophils (%) (Auto) 3.5 % (0.0-3.0) H Basophils (%) (Auto) 0.5 % (0.0-2.0) Sodium Level 139 MMOL/L (136-145) Potassium Level 3.8 MMOL/L (3.5-5.1) Chloride Level 108 MMOL/L (98-107) H Carbon Dioxide Level 23 MMOL/L (21-32) Anion Gap 8 mmol/L (5-15) Blood Urea Nitrogen 5 mg/dL (7-18) L Creatinine 0.7 MG/DL (0.55-1.30) Estimat Glomerular Filtration Rate > 60 mL/min (>60) Glucose Level 89 MG/DL (74-106) Calcium Level 8.3 MG/DL (8.5-10.1) L Phosphorus Level 3.0 MG/DL (2.5-4.9) Magnesium Level 1.8 MG/DL (1.8-2.4) Iron Level 44 ug/dL (50-175) L Microbiology Date/Time Source Procedure Growth Status 10/09/18 12:45 Urine,Clean Catch Urine Culture - Preliminary NO GROWTH Resulted Jace Castellon MD Oct 10, 2018 15:40
[2018-10-10] MEDS ORDERED: Heplock Flush 100 units/ml 3 ml syr IV SCH (15:45)
[2018-10-10 16:00] VITALS: BP 140/83
[2018-10-10 20:00] VITALS: BP 128/73
[2018-10-10] MEDS: Dyna-Hex 2% Top Sol 2oz TOPIC SCH (20:26)
[2018-10-10] MEDS ORDERED: Iron Sucrose 200 MG in NS 110 ML IV SCH (21:00)
[2018-10-11] VITALS: BP 145/82
--- NOTE | 2018-10-11 | Progress Note ---
DATE: 10/10/2018 NOTE: POOR AUDIO HEMATOLOGY/ONCOLOGY FOLLOWUP NOTE SUBJECTIVE: Yesterday, I had an extensive discussion with regarding the patient's dyspnea. Consideration for possible sepsis versus assessing the patient. She continues to have some exertional shortness of breath. I had an extensive discussion regarding drug information center [facility]. They cannot establish any exact data in terms of superiority of her being on . I have also made a phone call to our pharmacist here at [facility]. Unfortunately, the Feraheme is not available here in [facility]. The patient has made approximately 2750 mL of urine approximately 950. The patient has been . The patient's laboratory data has been evaluated. This morning, the patient has white cell count 7.3, hemoglobin 11.5, and platelet count 138,000, which is persistently low, previously it was 143,000. Hemoglobin yesterday was 12.2. The patient's platelet count on manual count was also noted to be decreased from 10/08/2018. However, this morning, the patient has chloride of 108 with a potassium of 3.8, sodium of 139, creatinine of 0.7, calcium , phosphorus , and magnesium 1.8. On 10/08/2018, the patient had an iron saturation of 25% with a ferritin of 909, total iron was noted to be 35. However today, the patient has iron load of 44. B12 level is normal at 822 with a folate level of 35.78. TSH is currently pending. inflammatory process. inflammatory process. she would like to . The patient to follow up closely with Cariology here in . She has undergone an echocardiogram on 10/08/2018. Ejection fraction 50% to 55%. PAST MEDICAL HISTORY: As noted above. SOCIAL HISTORY: As noted above. ALLERGIES: As noted above. MEDICATIONS: As noted above. FAMILY HISTORY: As noted above. REVIEW OF SYSTEMS: As noted above. The patient does have some shortness of breath on exertion. PHYSICAL EXAMINATION: VITAL SIGNS: The patient has temperature 98.2 degrees, pulse 74, and blood pressure 140/80. HEENT: Sclerae anicteric. CHEST: Rhonchi at the bases. CARDIAC: Regular rhythm. S1 and S2. ABDOMEN: 05:22. EXTREMITIES: Edema. ASSESSMENT AND PLAN: 1. Anemia. I had an extensive discussion with the patient, full anemia workup. workup, which may end up needing to have a bone marrow biopsy at a later date. . Workup has been sent for the evaluation is currently pending. 2. iron deficiency. The patient has been treated with Venofer. The patient much better for her. The patient does not have Feraheme available here. I had an extensive discussion with the staff, drug information and there is no clear Venofer. 3. Shortness of breath on exertion. Follow up with Cardiology for extensive result pending. 4. Postoperative abdominal surgery. . Lana Biswas M.D. DR: LOLA JOB#: [id number] CC:
[2018-10-11 04:00] VITALS: BP 141/75
[2018-10-11] MEDS: oxyCODONE HCL/Acetaminophen 5/325mg ORAL PRN (04:15)
[2018-10-11 06:42] LABS: BASOPHILS % (AUTO) 0.8 % (0.0-2.0); EOSINOPHILS % (AUTO) 3.3 % (0.0-3.0); HEMATOCRIT 35.8 % (37.0-47.0); LYMPHOCYTES % (AUTO) 6.8 % (20.0-45.0); MEAN CORPUSCULAR VOLUME 98 FL (80-99); MONOCYTES % (AUTO) 11.7 % (1.0-10.0); NEUTROPHILS % (AUTO) 77.5 % (45.0-75.0); PLATELET COUNT 160 K/UL (150-450); RED BLOOD COUNT 3.66 M/UL (4.20-5.40); RED CELL DISTRIBUTION WIDTH 14.7 % (11.6-14.8); WHITE BLOOD COUNT 8.7 K/UL (4.8-10.8)
[2018-10-11 06:45] LABS: ANION GAP 9 mmol/L (5-15); BLOOD UREA NITROGEN 9 mg/dL (7-18); CALCIUM 8.5 MG/DL (8.5-10.1); CARBON DIOXIDE 24 MMOL/L (21-32); CHLORIDE 106 MMOL/L (98-107); CREATININE 0.8 MG/DL (0.55-1.30); PHOSPHORUS 3.1 MG/DL (2.5-4.9); POTASSIUM 3.8 MMOL/L (3.5-5.1); SODIUM 138 MMOL/L (136-145)
[2018-10-11 06:49] LABS: IRON 168 ug/dL (50-175)
[2018-10-11 08:00] VITALS: BP 143/78
[2018-10-11] MEDS ORDERED: fentaNYL Destruction MISC SCH (08:00)
[2018-10-11] MEDS: Ipratropium 0.02% Inh Soln 2.5ml UD HHN SCH ×3 (08:15→19:00)
[2018-10-11] MEDS: Metoprolol 25mg tab ORAL SCH (09:05)
--- NOTE | 2018-10-11 10:53 | General Progress Note ---
Progress Note Progress Note AVSS Feeling better. Fentanyl patch decreased - no additional needed. Using Percocet prn intermittently. Mild pedal edema. CT angio of chest neg; duplex scan of legs neg Abdomen soft, healing nicely Urine 3700 Ileostomy 1375 MINESH 50+20+70 WBC 8700 Hgb 12 Platelets up 160,000 Iron 168 Imp. Improved Plan: D/C supplemental IV fluids Leave drain one more day anticipate d/c in AM Rx Percocet #50 Kian Dominguez MD Oct 11, 2018 10:53
[2018-10-11 12:00] VITALS: BP 140/83
[2018-10-11 16:00] VITALS: BP 145/74
[2018-10-11 20:00] VITALS: BP_SYST 118; BP_SYST 124; BP_DIAS 66; BP_DIAS 70
[2018-10-11] MEDS: Dyna-Hex 2% Top Sol 2oz TOPIC SCH (20:44)
[2018-10-11] MEDS: Metoprolol Tartrate 50mg tab ORAL SCH (20:44)
[2018-10-12] VITALS: BP 153/78
[2018-10-12] MEDS: Ipratropium 0.02% Inh Soln 2.5ml UD HHN SCH ×2 (01:00→07:00)
[2018-10-12 04:00] VITALS: BP 138/76
[2018-10-12] MEDS: LORazepam 1mg tab SL PRN (04:20)
[2018-10-12 05:55] LABS: BASOPHILS % (AUTO) 1.2 % (0.0-2.0); EOSINOPHILS % (AUTO) 3.4 % (0.0-3.0); HEMATOCRIT 34.1 % (37.0-47.0); HEMOGLOBIN 11.2 G/DL (12.0-16.0); LYMPHOCYTES % (AUTO) 7.8 % (20.0-45.0); MEAN CORPUSCULAR VOLUME 99 FL (80-99); MONOCYTES % (AUTO) 11.4 % (1.0-10.0); NEUTROPHILS % (AUTO) 76.2 % (45.0-75.0); PLATELET COUNT 142 K/UL (150-450); RED BLOOD COUNT 3.45 M/UL (4.20-5.40); RED CELL DISTRIBUTION WIDTH 15.1 % (11.6-14.8); WHITE BLOOD COUNT 8.4 K/UL (4.8-10.8)
[2018-10-12 06:39] LABS: ANION GAP 9 mmol/L (5-15); BLOOD UREA NITROGEN 9 mg/dL (7-18); CALCIUM 8.5 MG/DL (8.5-10.1); CARBON DIOXIDE 23 MMOL/L (21-32); CHLORIDE 108 MMOL/L (98-107); CREATININE 0.7 MG/DL (0.55-1.30); POTASSIUM 3.4 MMOL/L (3.5-5.1); SODIUM 140 MMOL/L (136-145)
[2018-10-12 07:14] LABS: IRON 168 ug/dL (50-175)
--- NOTE | 2018-10-12 07:54 | General Progress Note ---
Progress Note Progress Note AVSS Doing well. MINESH drain removed. Will leave leopoldo another week or two Urine 2425 Ileostomy 850 (eating 80%) MINESH drain only 15cc overnight K 3.4 Iron 168 Imp. Stable for discharge Plan: Did not want Percocet due to cost Rx: [facility] 10/325 #50 Lorazepam 1mg #50 F/U 1-2 weeks in office Full instructions/limitations/supplies discussed/provided Kian Dominguez MD Oct 12, 2018 07:54
[2018-10-12 08:00] VITALS: BP 149/79
[2018-10-12] MEDS: Metoprolol Tartrate 50mg tab ORAL SCH (08:38)
[2018-10-12] MEDS ORDERED: Iron Sucrose 200 MG in NS 110 ML IV ONE (09:30)
--- NOTE | 2018-10-12 11:16 | Cardiology Progress Note ---
Assessment/Plan Status Narrative 1. s/p Ileostomy placement 2. H/O A. Fib- stable 3. Atelectasis- by CXR 4. Hypoxemia- due to above- improving 5. Abdominal pain 6. Dehydration- improved 7. Hypothydism- Now with low level of TSH.may need to reduce dose of Synthroid 8. Anemia- s/p Tx with IV Iron 9. Hypotension -improved 10. WALTER- ? etio- r/o CHF, PE, underlying pulmonary Dz vs. Fe deficiency- doubt ischemia. PE ruled out- now improved 11. Atelectasis- improved Assessment/Plan Continue Metoprolol 50 mg BID Consider decreasing Synthroid to 75 mcg/day- Will wait until ready for DC. Plan Lexiscan nuclear stress test when stable and after DC .. DC home today. Discussed with Patient and with RN. Subjective Cardiovascular: Reports: no symptoms Respiratory: Reports: no symptoms Gastrointestinal/Abdominal: Reports: no symptoms Genitourinary: Reports: no symptoms Subjective 10/05- Has had abdominal pain, was up in chair, had decreased O2 Sat. 10/06- Abdominal pain improving. Ambulated\ 10/08- c/o WALTER with minimal exertion. Feels this is due to low iron levels. Has had similar Sx in the past with low Fe levels. 10/09- [place] less SOB last nite, but today c/o WALTER, Denies CP 10/10- notes improvement in WALTER, has refused inhalation Tx, bu getting Chest PT , ambulating, using I/S. Had CTA done- No PE. Atelectasis noted. 10/12- Feeling better, no SOB, going home today Objective Last 24 Hour Vital Signs Date Time Temp Pulse Resp B/P (MAP) Pulse Ox O2 Delivery O2 Flow Rate FiO2 10/12/18 09:00 Room Air 10/12/18 08:38 84 149/79 10/12/18 08:01 Room Air 21 10/12/18 08:01 84 18 98 Room Air 21 10/12/18 08:00 98.4 84 19 149/79 (102) 96 10/12/18 04:00 98.2 68 19 138/76 (96) 97 10/12/18 01:02 Room Air 21 10/12/18 01:01 Room Air 21 10/12/18 00:00 97.9 57 19 153/78 (103) 97 12/20/18 21:00 Room Air 10/11/18 20:44 70 124/70 10/11/18 20:32 Room Air 21 10/11/18 20:32 Room Air 21 10/11/18 20:00 97.9 70 18 124/70 (88) 96 10/11/18 16:00 98.3 72 16 145/74 (97) 100 10/11/18 13:37 Room Air 21 10/11/18 13:37 Room Air 21 10/11/18 12:00 99.3 70 18 140/83 (102) 100 Cardiovascular: normal rate, regular rhythm Respiratory/Chest: lungs clear Abdomen: non tender, soft Extremities: normal range of motion, non-tender, normal inspection, no calf tenderness, no swelling Intake and Output 10/11/18 10/12/18 19:00 07:00 Intake Total 850 ml 550 ml Output Total 1970 ml 1365 ml Balance -1120 ml -815 ml Intake Oral 850 ml 550 ml Output Urine Total 1425 ml 1000 ml Drainage Total 45 ml 15 ml Other 500 ml 350 ml # Voids 5 3 Laboratory Tests Test 10/12/18 05:00 White Blood Count 8.4 K/UL (4.8-10.8) Red Blood Count 3.45 M/UL (4.20-5.40) L Hemoglobin 11.2 G/DL (12.0-16.0) L Hematocrit 34.1 % (37.0-47.0) L Mean Corpuscular Volume 99 FL (80-99) Mean Corpuscular Hemoglobin 32.4 PG (27.0-31.0) H Mean Corpuscular Hemoglobin Concent 32.8 G/DL (32.0-36.0) Red Cell Distribution Width 15.1 % (11.6-14.8) H Platelet Count 142 K/UL (150-450) L Mean Platelet Volume 9.0 FL (6.5-10.1) Neutrophils (%) (Auto) 76.2 % (45.0-75.0) H Lymphocytes (%) (Auto) 7.8 % (20.0-45.0) L Monocytes (%) (Auto) 11.4 % (1.0-10.0) H Eosinophils (%) (Auto) 3.4 % (0.0-3.0) H Basophils (%) (Auto) 1.2 % (0.0-2.0) Sodium Level 140 MMOL/L (136-145) Potassium Level 3.4 MMOL/L (3.5-5.1) L Chloride Level 108 MMOL/L (98-107) H Carbon Dioxide Level 23 MMOL/L (21-32) Anion Gap 9 mmol/L (5-15) Blood Urea Nitrogen 9 mg/dL (7-18) Creatinine 0.7 MG/DL (0.55-1.30) Estimat Glomerular Filtration Rate > 60 mL/min (>60) Glucose Level 92 MG/DL (74-106) Calcium Level 8.5 MG/DL (8.5-10.1) Iron Level 168 ug/dL (50-175) Microbiology Date/Time Source Procedure Growth Status 10/09/18 12:45 Urine,Clean Catch Urine Culture - Preliminary Yeast Species Resulted Jace Castellon MD Oct 12, 2018 11:16
[2018-10-12 12:00] VITALS: BP 145/92
--- NOTE | 2018-10-12 21:00 | Progress Note ---
DATE: 10/12/2018 NOTE: UNCLEAR AUDIO SUBJECTIVE: On October 12, 2018, the patient continues to have some shortness of breath on exertion. 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 The patient has white blood cell count 8.4, hemoglobin 11.2, and platelet count 142. The patient's fibrinogen as of October 08, 2018 is 437. Her lupus anticoagulant is currently pending. The patient's iron level as of yesterday was 168 and creatinine of 0.8. The patient's potassium is mildly low at 3.8 with a sodium of 140. The patient's imaging studies have been reviewed. The patient's CT chest angiogram of October 10, 2018 has been reviewed and does not demonstrate acute pulmonary embolus or acute thoracic vascular pathology, changes are noted. Small left and trace right pleural effusion has been noted. REVIEW OF SYSTEMS: CONSTITUTIONAL: The patient denies any headaches, vision changes, or hearing loss. PULMONARY: The patient has some shortness of breath. CARDIAC: The patient denies chest pain or palpitations. GASTROINTESTINAL: The patient has some postsurgical abdominal pain. PHYSICAL EXAMINATION: GENERAL: The patient is a well developed female, no acute distress. VITAL SIGNS: Temperature 98.2, pulse of 68, blood pressure of 138/76, and breathing at 20. HEENT: Sclerae anicteric. CHEST: Decreased breath sounds at bases. CARDIAC: Regular S1, S2. ABDOMEN: Nontender. Postsurgical changes, ostomy in place. EXTREMITIES: There is trace edema. NEUROLOGIC: Nonfocal. LABORATORY DATA AND DIAGNOSTIC DATA: Laboratory as well as investigational studies as noted above. ASSESSMENT AND PLAN: 1. Iron deficiency. The patient has been on significant dose of Venofer at this point in time. Current iron total of 168. The patient has been wanting to have her ferritin to be done in the office as an outpatient basis. Unfortunately, we were unable to obtain any today upon discharge outpatient basis. My recommendation is for the patient to have her iron and ferritin levels evaluated can be made. I have explained to the patient that iron overdose can be of significant issues including liver toxicity, cardiac toxicity, ADMINISTRATIVE PROJECT COORDINATOR toxicity as well as other toxicity. The patient fully understands; however, she would like to have the Feraheme since her iron level did drop . At this point in time, the patient's iron level is 168, I have also explained to the ferritin could be an acute phase and increase and therefore combination of ferritin to iron as well as TIBC and iron saturation is to be taken into consideration in regards to the patient's treatment of IV iron. 2. Shortness of breath. Follow up with primary. 3. Postsurgery. 4. Disposition per Dr. Dominguez as an outpatient. 5. Thrombocytopenia. Full evaluation is not back, however, I requested the patient follow up with me as soon as she gets discharge and on the day the patient has followed with Dr. Dominguez. I will with her laboratory results. She understands she is to call me or come to the office to go over the results. Lana Biswas M.D. DR: JOHN JOB#: [id number] CC:
--- NOTE | 2018-10-16 13:39 | Discharge Summary ---
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 Patient was admitted for elective surgery. Consultations dr Maria R Bermudez - plastic surgeon dr Ca Castellon - cardio/IM dr Miriam Biswas - manufacturing helper/oncologist Procedures s/p 10/03/[address] Dominguez 1. Laparotomy with resection of failed Kock pouch and creation of Breanna ileostomy at the same right lower quadrant stoma. 2. Resection of part of the omentum and hernia sac. 3. Abdominal wall reconstruction performed together with Dr. Kevin Bermudez, Plastic and Reconstructive surgery with closure of the abdominal wall without mesh. 4. Estimated length of small bowel 13 to 14 feet. s/p 10/03/[address] Bermudez Abdominal wall reconstruction with advancement of abdominal wall fascia and musculature, elevating bilateral flaps. Hospital Course Patient admitted for elective surgery Laboratory workup revealed iron 62, hemoglobin stable Per history , patient getting recurrent atrial fibrillation if serum iron less than 100 Patient subsequently started on Venofer Hematology revealed leukocytosis ,WBC 12, possibly due to chronic steroid therapy Home medication for blood pressure control , thyroid replacement and estradiol were continued. Patient was on IV steroids and IV Protonix. PICC line placed prior to surgery p Patient started on the IV fluids Liver biopsy was planned during surgery due to history of persistently elevated liver enzymes. Patient kept n.p.o. after midnight for surgery Patient undergone surgery for resection of Kock pouch and creation of Breanna ileostomy along with abdominal wall reconstruction without mesh. Plastic surgeon assisted with abdominal wall reconstruction Course of recovery was uneventful Patient initially kept n.p.o. Pain management was provided with Fentanyl patch and Toradol as needed ( not tolerated [employer] in the past) Hemodynamic status was closely monitored Labs ,intake and output were closely monitored Acosta catheter was continued Patient continued to be n.p.o. with IV fluids Patient noted to have a transient hypotension with third spacing Cardiology consult was requested. DVT prophylaxis with SCD provided Patient was continued on IV Solu-Cortef ( chronic prednisone use at home) Incision was closely monitored, remained clean; stoma pink , abdominal binder in place with hole cut for ileostomy, abdomen soft Report Writer seen and evaluated patient Per cardiology hypotension was possibly due to mild hypovolemia and possible effect of medication Patient was given bolus of IV fluids with improvement in blood pressure IV fluids at 150 cc/ht rate continued Patient started on low-dose of beta-dong to avoid rebound effect of beta- dong or tachyphylaxis. Blood pressure was closely monitored ; patient remained in sinus rhythm ; EKG was essentially unremarkable Volumes and cardiorenal parameters were closely monitored to avoid fluid overload Electrolytes were replaced as needed ( magnesium, phosphorus, and potassium) Incentive spirometry was encouraged every hour x10 while in the bed Follow up chest x-ray revealed no changes/mild atelectatic changes as preoperatively Blood pressure was slowly improving Patient was mobilized, incentive spirometry utilized while in the bed NPO status continued with electrolytes replacement as needed Acosta catheter continued, given pelvic dissection and low output Ileus was gradually resolving Patient remained afebrile with normal blood pressure , pain controlled Incision clean , stoma pink , abdomen soft MINESH drain output closely monitored MINESH drain was discontinued prior to discharge Patient subsequently started on clear liquid diet after ileus resolved Hemoglobin and hematocrit were closely monitored Patient with chronic iron deficiency anemia , iron was still low despite Venofer infusion; Venofer dose increased to 200 mg Patient was able to tolerate diet; diet was subsequently advanced to low residue diet Antiemetic were on board as needed Acosta catheter was discontinued IVF rate decreased Strict intake and output continued Hematology consult was requested Per manufacturing helper anemia workup was done Serum iron prior to discharge 168. Initial; ferritin 909 Explained to patient , that iron overdose can cause significant issues , including liver and cardiac toxicity as well as the [employer] toxicity Patient also noted to have low platelet count, per patient not aware of it Initial workup was ordered by manufacturing helper Platelet count was closely monitored Patient to follow-up with manufacturing helper as outpatient regarding thrombocytopenia. Prior to discharge hemoglobin 11.2 ,hematocrit 34.1. Platelet count 142 (with lowest being 114 ). Supplemental oxygen was on board as needed to keep pulse oximetry above 92% Chest x-ray revealed atelectasis Incentive spirometry encouraged Patient was encouraged to get out of bed as tolerated Pulse oximetry stable on room air Echocardiogram revealed preserved ejection fraction 60-65% ,no evidence of left ventricular hypertrophy. No evidence of wall motion abnormality. Right ventricular systolic pressure of 51 consistent with moderate pulmonary hypertension Due to dyspnea patient undergone CTA of the chest, which revealed no evidence of acute pulmonary emboli or other acute thoracic muscular pathology Venous duplex bilateral lower extremity revealed no evidence of acute DVT TSH low Report Writer recommended decrease Synthroid dose and repeat TSH in 1 month Report Writer recommended nuclear stress test when stable as outpatient. 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 Biopsy of hernia sac was consistent with hernia sac , acutely inflamed. Biopsy of stoma sac was consistent with stoma sac, acutely inflamed. Biopsy of bowel revealed small bowel with patchy acute inflammation . Biopsy of the liver revealed fibrous tissue with mild chronic inflammation. Liver enzymes were closely monitored and remained stable PICC line was removed after Venofer infusion Robinson left for another week or 2 until outpatient visit with surgeon Incision clean , afebrile, pain controlled, hemodynamically stable, blood pressure controlled, labs stable , tolerated diet , voided freely Patient was cleared for discharge Prescription for analgesic provided Patient to follow-up with surgeon in the office in 1-2 weeks Full discharge instructions and limitations were discussed in detail Supplies provided FINAL DIAGNOSES 1. Malfunctioning Kock pouch continent ileostomy with recurrent difficulty intubating and incontinence and prolapse of the nipple valve 2. Multiple recurrent extensive ventral incisional and parastomal hernia involving the entire lower abdomen and central abdomen. 3. STATUS POST MULTIPLE ABDOMINAL OPERATIONS: 3.1. April 2000 followed by perineal trauma. She underwent laparotomy with colostomy and drainage of pelvic abscess and evacuation of retroperitoneal hematoma. 3.2. July 2001, proctocolectomy with creation of a Kock pouch and repair of left lower quadrant colostomy site hernia, cholecystectomy, total abdominal hysterectomy and bilateral salpingo-oophorectomy, and urethropexy. 3.3. 2001, repair of parastomal hernia. 3.4. 2002, relocation of Kock pouch to the left side of abdomen with creation of a new valve and repair of right-sided abdominal hernia. 3.5. 2004, repair of complex recurrent extensive ventral incisional and parastomal hernia with Parietex mesh and revision of Kock pouch stoma. 3.6. 2008, repair of recurrent Kock pouch parastomal hernia with Surgisis mesh and revision of Kock pouch stoma stricture. 3.7. August 2010, laparotomy with creation of new valve and stoma with relocation of the Kock pouch to the right side of the abdomen and repair of recurrent left lower quadrant abdominal wall hernia and temporary catheter gastrostomy. 3.8. January 2012, laparotomy with revision of Kock pouch including creation of new valve and stoma and repair of recurrent incisional hernia. 3.9. July 2012, laparotomy with creation of new valve and stoma with preservation of Kock pouch using a PROCEED mesh sling and repair of recurrent left lower quadrant incisional hernia. 3.10. January 2013, laparotomy with creation of new valve and stoma with Dual Mesh sling with estimated intestinal length of approximately 12 feet. 4.1 s/p resection of Kock Pouch and creation of Breanna ileostomy, 4.2 s/p abdominal wall reconstruction without mesh 5.Ileus 6. Anemia of iron deficiency 7. Paroxysmal atrial fibrillation 8. Transient hypotension 9. History of hypertension 10.Hypothyroidism with low TSH 11.Fibromyalgia 12.Thrombocytopenia 13. Electrolyte imbalance ( hypokalemia, hypomagnesemia, hypophosphatemia) Discharge Medications Continued Medications: Acetaminophen* (Acetaminophen 325MG Tablet*) 325 Mg Tablet 650 MG ORAL EVERY 6 HOURS (This prescription has been renewed) Ciprofloxacin* (Cipro*) 500 Mg Tablet 500 MG PO BID, #14 TAB Estradiol (Estradiol) 1 Mg Tablet 0.5 MG PO DAILY (This prescription has been renewed) Ibuprofen* (Motrin*) 600 Mg Tablet 600 MG PO QID, TAB (This prescription has been renewed) ekaAt Levothyroxine Sodium* (Levothyroxine Sodium*) 75 Mcg Tablet 100 MCG ORAL DAILY, TAB (This prescription has been renewed) Take in the morning on an empty stomach, at least 30 minutes before food. Lisinopril* (Lisinopril*) 10 Mg Tablet 10 MG PO DAILY, #15 TAB (This prescription has been renewed) Take 1 tablet by mouth daily. Metoprolol Tartrate* (Metoprolol Tartrate*) 50 Mg Tablet 50 MG ORAL BID, TAB (This prescription has been renewed) Propafenone Hcl* (Rhythmol*) 150 Mg Tablet 225 MG PO Q4HR PRN for atrial fib, TAB (This prescription has been renewed) [Vicodin] () 10-650 MG PO DAILY (This prescription has been renewed) 1/2 TABLET BID PRN Discharge Condition Upon Discharge: stable Discharge Disposition Patient was discharged to Home (01) Discharge Instructions Discharge Instructions Special Instructions I have been assigned to complete a D/C Summary on this account. I was not involved in the patient management Shruti Walsh NP Oct 16, 2018 13:39
== END 2018-10-12 13:45 | disposition home or self-care (01) | DRG 330 ==
LOC: 3E 10-02 11:57
PROC: 02HV33Z Insertion of Infusion Device into Superior Vena Cava, Percutaneous Approach (ICD-10-PCS; principal; 2018-10-02)
PROC: B518ZZA Fluoroscopy of Superior Vena Cava, Guidance (ICD-10-PCS; principal; 2018-10-02)
PROC: 0WQF0ZZ Repair Abdominal Wall, Open Approach (ICD-10-PCS; 2018-10-03 10:00)
PROC: 0DBU0ZX Excision of Omentum, Open Approach, Diagnostic (ICD-10-PCS; 2018-10-03 10:00)
PROC: 0FB03ZX Excision of Liver, Percutaneous Approach, Diagnostic (ICD-10-PCS; 2018-10-03 10:00)
PROC: 0DBB0ZZ Excision of Ileum, Open Approach (ICD-10-PCS; 2018-10-03 10:00)
PROC: 0D1B0Z4 Bypass Ileum to Cutaneous, Open Approach (ICD-10-PCS; 2018-10-03 10:00)
DX: K94.13 Enterostomy malfunction (principal); K91.850 Pouchitis; J98.11 Atelectasis; K56.7 Ileus, unspecified; K43.2 Incisional hernia without obstruction or gangrene; K43.5 Parastomal hernia without obstruction or gangrene; M46.90 Unspecified inflammatory spondylopathy, site unspecified; M79.7 Fibromyalgia; D50.9 Iron deficiency anemia, unspecified; I95.81 Postprocedural hypotension; I48.0 Paroxysmal atrial fibrillation; E86.1 Hypovolemia; E03.9 Hypothyroidism, unspecified; E87.6 Hypokalemia; E86.0 Dehydration; E83.42 Hypomagnesemia; E83.39 Other disorders of phosphorus metabolism; D69.6 Thrombocytopenia, unspecified; I20.8 Other forms of angina pectoris; R09.02 Hypoxemia
CPT/HCPCS: 36415; 36569; 71045; 71275; 76937; 80048; 80053; 81001; 82607; 82728; 82746; 83540; 83550; 83735; 84100; 84165; 84443; 85007; 85025; 85060; 85384; 85610; 85613; 85730; 86334; 86850; 86900; 86901; 86920; 87086; 93005; 93306; 93970; 94003; 94150; 94640; 94664; J2370; J2405; J8499; S0077